=== PATIENT | female | born 1940 | race African-American/Black ===

== ENCOUNTER 2018-02-09 17:06 | Inpatient (IN) | payer MEDICARE, MEDICAID ==
[~2018-02-09] VITALS: Ht 157.5 cm; Wt 63.5 kg
[~2018-02-09 17:06] MED LIST: ATOR10TA; CLOP75TA16; PREG100C; VALS160T2
[2018-02-09 20:59] LABS: BASOPHILS % 0.5 % (0.0-2.0); HEMATOCRIT. 28.9 % (36.0-48.0); HEMOGLOBIN. 9.1 g/dL (12.0-16.0); LYMPHOCYTES % 7.7 % (20.0-50.0); MEAN CORPUSCULAR HEMOGLOBIN 26.7 pg (28.0-32.0); MEAN CORPUSCULAR VOLUME 84.4 fL (81.0-99.0); MEAN PLATELET VOLUME 8.6 fl (7.4-10.4); MONOCYTES % 4.5 % (2.0-8.0); NEUTROPHILS % 87.3 % (40.0-76.0); PLATELET 674 x1000/uL (130-400); RED BLOOD CELL COUNT 3.42 mill/uL (4.2-5.4); RED CELL DISTRIBUTION WIDTH 16.3 % (11.6-14.6)
[2018-02-09] MEDS ORDERED: SODIUM CHLORIDE 0.9% 1000ML BAG (SEPSIS BOLUS) IV ONE (21:00)
[2018-02-09 21:02] LABS: CHLORIDE 108 mEq/L (98-107)
[2018-02-09 21:03] LABS: INR 1.1
[2018-02-09] MEDS ORDERED: PIPERACILLIN/TAZ 3.375G PREMIX 50 ML IV ONE (21:15)
[2018-02-09] MEDS ORDERED: VANCOMYCIN 1 G PREMIX 200 ML IV ONE (21:15)
[2018-02-10] VITALS (12 sets, daily range): BP systolic 87–113; BP diastolic 28–62
[2018-02-10 00:15] LABS: CLARITY URINE CLOUDY (CLEAR); COLOR URINE YELLOW (YELLOW); KETONES URINE NEGATIVE (NEGATIVE); LEUKOCYTE ESTERASE URINE 3+ (NEGATIVE); NITRITE URINE NEGATIVE (NEGATIVE); OCCULT BLOOD URINE 2+ (NEGATIVE); PROTEIN URINE 2+ (NEGATIVE); SPECIFIC GRAVITY URINE 1.023 (1.005-1.030); UROBILINOGEN URINE 0.2 E.U./dL (0.2-1.0)
[2018-02-10] MEDS ORDERED: ACETAMINOPHEN 650MG/20.3ML UDC PO PRN (03:00)
[2018-02-10] MEDS ORDERED: HYDROCODONE/ACETAMINOPHEN 5/325MG TABLET PO PRN (03:00)
[2018-02-10] MEDS ORDERED: BACL-141 GT (03:48)
[2018-02-10] MEDS ORDERED: PROSTAT SUGAR FREE GT (03:48)
[2018-02-10] MEDS ORDERED: DONE5TAB7 GT (03:48)
[2018-02-10] MEDS ORDERED: LACT1CAP68 GT (03:48)
[2018-02-10] MEDS ORDERED: OXYB5SYR2 GT (03:48)
[2018-02-10] MEDS ORDERED: MAG355OR21 GT (03:48)
[2018-02-10] MEDS ORDERED: ACET-2853 PO (03:48)
[2018-02-10] MEDS ORDERED: HYDR-4001 PO (03:48)
[2018-02-10] MEDS ORDERED: MULT-230 PO (03:48)
[2018-02-10] MEDS ORDERED: DOCU250C14 GT (03:48)
[2018-02-10] MEDS ORDERED: CRAN3875 PO (03:49)
[2018-02-10] MEDS: CEFTRIAXONE 1 G PREMIX 50 ML IV SCH (04:10)
[2018-02-10] MEDS: SODIUM CHLORIDE 0.45% 1,000 ML IV SCH ×2 (04:11→17:49)
[2018-02-10] MEDS ORDERED: OXYBUTYNIN CHLORIDE GT SCH (06:00)
[2018-02-10] MEDS: OXYBUTYNIN CHLORIDE 5MG TABLET GT SCH ×3 (07:27→22:08)
[2018-02-10] MEDS: MULTIVITAMINS,THER W-MINERALS TABLET PO SCH (08:03)
[2018-02-10] MEDS ORDERED: [UNRECOGNIZED DRUG - OTHER] PO SCH (09:00)
[2018-02-10] MEDS ORDERED: MULTIVITAMIN WITH MINERALS PO SCH (09:00)
[2018-02-10 09:47] LABS: HEMATOCRIT. 24.3 % (36.0-48.0); HEMOGLOBIN. 7.6 g/dL (12.0-16.0); MEAN CORPUSCULAR HEMOGLOBIN 26.4 pg (28.0-32.0); MEAN CORPUSCULAR VOLUME 84.1 fL (81.0-99.0); MEAN PLATELET VOLUME 8.5 fl (7.4-10.4); PLATELET 597 x1000/uL (130-400); RED BLOOD CELL COUNT 2.89 mill/uL (4.2-5.4); RED CELL DISTRIBUTION WIDTH 16.2 % (11.6-14.6)
[2018-02-10 10:29] LABS: PLATELET ESTIMATE INCREASED
[2018-02-10] MEDS: VANCOMYCIN 750 MG PREMIX 150 ML IV SCH (10:45)
[2018-02-10] MEDS ORDERED: VANCOMYCIN 500 MG PREMIX 100 ML IV SCH (14:00)
[2018-02-10] MEDS ORDERED: DOCUSATE SODIUM 100MG CAPSULE PO SCH (15:00)
[2018-02-10] MEDS: DOCUSATE SODIUM SUGAR FREE 100MG/10ML UDC NG SCH (16:55)
[2018-02-10 18:35] LABS: BASOPHILS % 0.4 % (0.0-2.0); EOSINOPHILS % 0.1 % (0.0-5.0); HEMATOCRIT. 25.9 % (36.0-48.0); HEMOGLOBIN. 8.1 g/dL (12.0-16.0); MEAN CORPUSCULAR HEMOGLOBIN 26.3 pg (28.0-32.0); MEAN CORPUSCULAR VOLUME 84.5 fL (81.0-99.0); MEAN PLATELET VOLUME 8.7 fl (7.4-10.4); MONOCYTES % 3.5 % (2.0-8.0); PLATELET 530 x1000/uL (130-400); RED BLOOD CELL COUNT 3.06 mill/uL (4.2-5.4); RED CELL DISTRIBUTION WIDTH 16.5 % (11.6-14.6)
[2018-02-11] VITALS (16 sets, daily range): BP systolic 91–116; BP diastolic 47–83
[2018-02-11] MEDS: CEFTRIAXONE 1 G PREMIX 50 ML IV SCH (04:22)
[2018-02-11 05:56] LABS: HEMATOCRIT. 22.6 % (36.0-48.0); MEAN CORPUSCULAR HEMOGLOBIN 26.3 pg (28.0-32.0); MEAN CORPUSCULAR VOLUME 85.5 fL (81.0-99.0); MEAN PLATELET VOLUME 9.2 fl (7.4-10.4); RED BLOOD CELL COUNT 2.64 mill/uL (4.2-5.4); RED CELL DISTRIBUTION WIDTH 16.5 % (11.6-14.6)
[2018-02-11] MEDS: OXYBUTYNIN CHLORIDE 5MG TABLET GT SCH ×3 (06:53→22:03)
[2018-02-11 07:14] LABS: CHLORIDE 112 mEq/L (98-107)
[2018-02-11 07:30] LABS: PHOSPHORUS 2.4 mg/dL (2.5-4.9); TOTAL IRON BINDING CAPACITY 222 ug/dL (250-450)
[2018-02-11] MEDS: MULTIVITAMINS,THER W-MINERALS TABLET PO SCH (08:20)
[2018-02-11] MEDS: PANTOPRAZOLE SODIUM 40 MG/VIAL IV SCH (08:21)
[2018-02-11] MEDS: DOCUSATE SODIUM SUGAR FREE 100MG/10ML UDC NG SCH (08:21)
[2018-02-11] MEDS: VANCOMYCIN 750 MG PREMIX 150 ML IV SCH (08:21)
[2018-02-11 09:24] LABS: PLATELET ESTIMATE INCREASED
[2018-02-11 09:26] LABS: PLATELET 510 x1000/uL (130-400)
[2018-02-11] MEDS: POTASSIUM-SODIUM PHOSPHATE POWDER PACKET PO SCH ×2 (10:54→16:17)
[2018-02-11 10:59] LABS: FERRITIN 575 ng/mL (10-291)
[2018-02-11 11:10] LABS: HEPATITIS B SURFACE ANTIGEN NEGATIVE
[2018-02-11 11:38] LABS: HEPATITIS B CORE AB IGM NEGATIVE
[2018-02-11 11:40] LABS: HEPATITIS A AB IGM NEGATIVE (NEGATIVE)
[2018-02-11] MEDS: DEXTROSE 5% WATER 1,000 ML IV SCH (16:20)
[2018-02-11] MEDS: NYSTATIN POWDER 15GM TOP SCH (16:59)
[2018-02-11] MEDS ORDERED: ASCORBIC ACID 500MG/5ML 120ML PO SCH (17:00)
[2018-02-11] MEDS: ASCORBIC ACID 250 MG TABLET PO SCH (17:09)
[2018-02-11 19:15] LABS: CHLORIDE 113 mEq/L (98-107)
[2018-02-11] MEDS: METRONIDAZOLE 500MG TABLET PO SCH (22:03)
[2018-02-12] VITALS (12 sets, daily range): BP systolic 100–138; BP diastolic 46–99
[2018-02-12] MEDS: OXYBUTYNIN CHLORIDE 5MG TABLET GT SCH ×3 (05:49→21:28)
[2018-02-12] MEDS: CEFTRIAXONE 1 G PREMIX 50 ML IV SCH (05:50)
[2018-02-12] MEDS: DEXTROSE 5% WATER 1,000 ML IV SCH ×2 (05:52→10:40)
[2018-02-12 07:28] LABS: HEMATOCRIT. 29.8 % (36.0-48.0); HEMOGLOBIN. 9.6 g/dL (12.0-16.0); MEAN CORPUSCULAR VOLUME 87.3 fL (81.0-99.0); PLATELET 526 x1000/uL (130-400); RED BLOOD CELL COUNT 3.42 mill/uL (4.2-5.4); RED CELL DISTRIBUTION WIDTH 15.9 % (11.6-14.6)
[2018-02-12 08:01] LABS: CHLORIDE 110 mEq/L (98-107)
[2018-02-12 08:10] LABS: PHOSPHORUS 2.6 mg/dL (2.5-4.9)
[2018-02-12] MEDS: POTASSIUM-SODIUM PHOSPHATE POWDER PACKET PO SCH ×2 (08:58→14:14)
[2018-02-12] MEDS: VANCOMYCIN 750 MG PREMIX 150 ML IV SCH (08:58)
[2018-02-12] MEDS: DOCUSATE SODIUM SUGAR FREE 100MG/10ML UDC NG SCH (08:58)
[2018-02-12] MEDS: PANTOPRAZOLE SODIUM 40 MG/VIAL IV SCH (08:58)
[2018-02-12] MEDS: ASCORBIC ACID 250 MG TABLET PO SCH ×2 (08:58→17:25)
[2018-02-12] MEDS: MULTIVITAMINS,THER W-MINERALS TABLET PO SCH (08:58)
[2018-02-12] MEDS: METRONIDAZOLE 500MG TABLET PO SCH (08:58)
[2018-02-12] MEDS: ZINC SULFATE 220 MG ( 50 ) CAPSULE PO SCH (08:58)
[2018-02-12 09:41] LABS: PLATELET ESTIMATE INCREASED
[2018-02-12] MEDS: NYSTATIN POWDER 15GM TOP SCH ×2 (11:32→17:21)
[2018-02-12] MEDS: MEROPENEM 500 MG in SODIUM CHLORIDE 0.9% 50 ML IV SCH ×2 (15:32→23:00)
[2018-02-13 00:04] VITALS: BP 109/71
[2018-02-13 01:32] VITALS: BP 97/59
[2018-02-13 02:02] VITALS: BP 95/28
[2018-02-13 04:00] VITALS: BP 129/79
[2018-02-13] MEDS: OXYBUTYNIN CHLORIDE 5MG TABLET GT SCH ×3 (05:54→22:41)
[2018-02-13] MEDS: DEXTROSE 5% WATER 1,000 ML IV SCH (05:59)
[2018-02-13] MEDS: MEROPENEM 500 MG in SODIUM CHLORIDE 0.9% 50 ML IV SCH ×3 (06:15→22:41)
[2018-02-13] MEDS: DOCUSATE SODIUM SUGAR FREE 100MG/10ML UDC NG SCH (08:45)
[2018-02-13] MEDS: MULTIVITAMINS,THER W-MINERALS TABLET PO SCH (08:46)
[2018-02-13] MEDS: ASCORBIC ACID 250 MG TABLET PO SCH ×2 (08:46→18:36)
[2018-02-13] MEDS: POTASSIUM-SODIUM PHOSPHATE POWDER PACKET PO SCH (08:46)
[2018-02-13] MEDS: ZINC SULFATE 220 MG ( 50 ) CAPSULE PO SCH (08:46)
[2018-02-13] MEDS: FAMOTIDINE 20MG TABLET PO SCH (08:46)
[2018-02-13] MEDS: NYSTATIN POWDER 15GM TOP SCH ×2 (08:56→18:36)
[2018-02-13] MEDS ORDERED: LORAZEPAM 2MG/ML CPJ IV PRN (10:45)
[2018-02-13 11:12] LABS: BASOPHILS % 0.1 % (0.0-2.0); EOSINOPHILS % 0.1 % (0.0-5.0); HEMATOCRIT. 25.9 % (36.0-48.0); HEMOGLOBIN. 8.5 g/dL (12.0-16.0); LYMPHOCYTES % 7.5 % (20.0-50.0); MEAN CORPUSCULAR HEMOGLOBIN 28.2 pg (28.0-32.0); MEAN CORPUSCULAR VOLUME 86.2 fL (81.0-99.0); MEAN PLATELET VOLUME 8.3 fl (7.4-10.4); MONOCYTES % 3.7 % (2.0-8.0); NEUTROPHILS % 88.6 % (40.0-76.0); PLATELET 543 x1000/uL (130-400); RED CELL DISTRIBUTION WIDTH 16.5 % (11.6-14.6)
[2018-02-13 11:54] LABS: HAPTOGLOBIN 340 mg/dL (30-200)
[2018-02-13 13:16] LABS: CHLORIDE 105 mEq/L (98-107)
[2018-02-13 13:17] LABS: PHOSPHORUS 2.7 mg/dL (2.5-4.9)
[2018-02-13 16:00] VITALS: BP 163/50
[2018-02-13] MEDS: FERROUS SULFATE 300MG/5ML UDC GT SCH (18:36)
[2018-02-13 20:57] VITALS: BP 98/54
[2018-02-14] VITALS: BP 99/55
[2018-02-14 04:00] VITALS: BP 122/70
[2018-02-14] MEDS: MEROPENEM 500 MG in SODIUM CHLORIDE 0.9% 50 ML IV SCH ×3 (05:24→22:21)
[2018-02-14] MEDS: OXYBUTYNIN CHLORIDE 5MG TABLET GT SCH ×3 (05:24→22:22)
[2018-02-14 07:00] LABS: CHLORIDE 107 mEq/L (98-107)
[2018-02-14 07:01] LABS: PHOSPHORUS 2.5 mg/dL (2.5-4.9)
[2018-02-14 07:09] LABS: BASOPHILS % 0.6 % (0.0-2.0); EOSINOPHILS % 0.4 % (0.0-5.0); HEMATOCRIT. 30.5 % (36.0-48.0); HEMOGLOBIN. 9.8 g/dL (12.0-16.0); LYMPHOCYTES % 21.6 % (20.0-50.0); MEAN CORPUSCULAR HEMOGLOBIN 27.9 pg (28.0-32.0); MEAN CORPUSCULAR VOLUME 86.6 fL (81.0-99.0); MEAN PLATELET VOLUME 8.7 fl (7.4-10.4); MONOCYTES % 7.3 % (2.0-8.0); NEUTROPHILS % 70.1 % (40.0-76.0); PLATELET 439 x1000/uL (130-400); RED BLOOD CELL COUNT 3.52 mill/uL (4.2-5.4); RED CELL DISTRIBUTION WIDTH 16.3 % (11.6-14.6)
[2018-02-14] MEDS: NYSTATIN POWDER 15GM TOP SCH ×2 (09:00→17:58)
[2018-02-14 09:07] LABS: IMMUNOGLOBULIN A 397 mg/dL (64-422); IMMUNOGLOBULIN G 1402 mg/dL (700-1600); IMMUNOGLOBULIN M 92 mg/dL (26-217)
[2018-02-14] MEDS: ZINC SULFATE 220 MG ( 50 ) CAPSULE PO SCH (09:16)
[2018-02-14] MEDS: FERROUS SULFATE 300MG/5ML UDC GT SCH ×3 (09:16→17:59)
[2018-02-14] MEDS: DOCUSATE SODIUM SUGAR FREE 100MG/10ML UDC NG SCH (09:16)
[2018-02-14] MEDS: FAMOTIDINE 20MG TABLET PO SCH (09:16)
[2018-02-14] MEDS: MULTIVITAMINS,THER W-MINERALS TABLET PO SCH (09:16)
[2018-02-14] MEDS: ASCORBIC ACID 250 MG TABLET PO SCH ×2 (09:16→17:00)
[2018-02-14] MEDS: POTASSIUM-SODIUM PHOSPHATE POWDER PACKET PO SCH (09:16)
[2018-02-14] MEDS ORDERED: DEXTROSE 5% WATER 1,000 ML IV SCH (13:00)
[2018-02-14 20:00] VITALS: BP 128/52
[2018-02-15] VITALS (7 sets, daily range): BP systolic 117–130; BP diastolic 54–68
[2018-02-15] MEDS: MEROPENEM 500 MG in SODIUM CHLORIDE 0.9% 50 ML IV SCH ×3 (05:29→22:55)
[2018-02-15] MEDS: OXYBUTYNIN CHLORIDE 5MG TABLET GT SCH ×3 (05:30→22:55)
[2018-02-15 07:05] LABS: BASOPHILS % 0.5 % (0.0-2.0); EOSINOPHILS % 0.4 % (0.0-5.0); HEMATOCRIT. 27.9 % (36.0-48.0); LYMPHOCYTES % 11.9 % (20.0-50.0); MEAN CORPUSCULAR HEMOGLOBIN 27.8 pg (28.0-32.0); MEAN PLATELET VOLUME 8.3 fl (7.4-10.4); MONOCYTES % 4.4 % (2.0-8.0); NEUTROPHILS % 82.8 % (40.0-76.0); PLATELET 509 x1000/uL (130-400); RED BLOOD CELL COUNT 3.24 mill/uL (4.2-5.4); RED CELL DISTRIBUTION WIDTH 16.7 % (11.6-14.6)
[2018-02-15 07:56] LABS: CHLORIDE 102 mEq/L (98-107)
[2018-02-15 08:08] LABS: PHOSPHORUS 2.3 mg/dL (2.5-4.9)
[2018-02-15] MEDS: DOCUSATE SODIUM SUGAR FREE 100MG/10ML UDC NG SCH (08:08)
[2018-02-15] MEDS: FERROUS SULFATE 300MG/5ML UDC GT SCH ×3 (08:08→18:57)
[2018-02-15] MEDS: NYSTATIN POWDER 15GM TOP SCH ×2 (08:08→18:58)
[2018-02-15] MEDS: ZINC SULFATE 220 MG ( 50 ) CAPSULE PO SCH (08:08)
[2018-02-15] MEDS: POTASSIUM-SODIUM PHOSPHATE POWDER PACKET PO SCH (08:08)
[2018-02-15] MEDS: MULTIVITAMINS,THER W-MINERALS TABLET PO SCH (08:08)
[2018-02-15] MEDS: ASCORBIC ACID 250 MG TABLET PO SCH ×2 (08:08→18:57)
[2018-02-15] MEDS: FAMOTIDINE 20MG TABLET PO SCH (08:08)
[2018-02-15] MEDS ORDERED: POTASSIUM-SODIUM PHOSPHATE POWDER PACKET PO SCH (17:00)
[2018-02-16] VITALS: BP 119/60
[2018-02-16 04:00] VITALS: BP 116/49
[2018-02-16] MEDS: OXYBUTYNIN CHLORIDE 5MG TABLET GT SCH ×3 (05:51→22:17)
[2018-02-16] MEDS: MEROPENEM 500 MG in SODIUM CHLORIDE 0.9% 50 ML IV SCH ×3 (05:51→22:00)
[2018-02-16 07:43] LABS: HEMATOCRIT. 26.8 % (36.0-48.0); HEMOGLOBIN. 8.6 g/dL (12.0-16.0); MEAN CORPUSCULAR HEMOGLOBIN 27.8 pg (28.0-32.0); MEAN PLATELET VOLUME 7.9 fl (7.4-10.4); PLATELET 465 x1000/uL (130-400); RED BLOOD CELL COUNT 3.11 mill/uL (4.2-5.4); RED CELL DISTRIBUTION WIDTH 16.8 % (11.6-14.6)
[2018-02-16 07:57] LABS: CHLORIDE 103 mEq/L (98-107)
[2018-02-16 07:59] LABS: PHOSPHORUS 3.2 mg/dL (2.5-4.9)
[2018-02-16 08:00] VITALS: BP 105/49
[2018-02-16] MEDS: ASCORBIC ACID 250 MG TABLET PO SCH ×2 (09:04→17:08)
[2018-02-16] MEDS: MULTIVITAMINS,THER W-MINERALS TABLET PO SCH (09:04)
[2018-02-16] MEDS: ZINC SULFATE 220 MG ( 50 ) CAPSULE PO SCH (09:04)
[2018-02-16] MEDS: FAMOTIDINE 20MG TABLET PO SCH (09:04)
[2018-02-16] MEDS: DOCUSATE SODIUM SUGAR FREE 100MG/10ML UDC NG SCH (09:06)
[2018-02-16] MEDS: FERROUS SULFATE 300MG/5ML UDC GT SCH ×3 (09:07→17:08)
[2018-02-16] MEDS: POTASSIUM-SODIUM PHOSPHATE POWDER PACKET PO SCH (09:08)
[2018-02-16] MEDS: NYSTATIN POWDER 15GM TOP SCH ×2 (09:08→17:08)
[2018-02-16 11:39] LABS: PLATELET ESTIMATE INCREASED
[2018-02-16 12:00] VITALS: BP 100/48
[2018-02-16 16:00] VITALS: BP 115/57
[2018-02-16] MEDS ORDERED: LORAZEPAM 1MG TABLET GT PRN (16:30)
[2018-02-16 20:00] VITALS: BP 118/65
[2018-02-17] VITALS (7 sets, daily range): BP systolic 94–117; BP diastolic 45–75
[2018-02-17] MEDS: MEROPENEM 500 MG in SODIUM CHLORIDE 0.9% 50 ML IV SCH ×2 (05:12→13:08)
[2018-02-17] MEDS: OXYBUTYNIN CHLORIDE 5MG TABLET GT SCH ×2 (05:12→13:08)
[2018-02-17] MEDS: ZINC SULFATE 220 MG ( 50 ) CAPSULE PO SCH (09:28)
[2018-02-17] MEDS: FERROUS SULFATE 300MG/5ML UDC GT SCH ×3 (09:28→17:37)
[2018-02-17] MEDS: ASCORBIC ACID 250 MG TABLET PO SCH ×2 (09:28→17:37)
[2018-02-17] MEDS: DOCUSATE SODIUM SUGAR FREE 100MG/10ML UDC NG SCH (09:28)
[2018-02-17] MEDS: MULTIVITAMINS,THER W-MINERALS TABLET PO SCH (09:28)
[2018-02-17] MEDS: FAMOTIDINE 20MG TABLET PO SCH (09:28)
[2018-02-17] MEDS: POTASSIUM-SODIUM PHOSPHATE POWDER PACKET PO SCH (09:29)
[2018-02-17 10:42] LABS: CHLORIDE 105 mEq/L (98-107)
[2018-02-17 10:49] LABS: PHOSPHORUS 3.4 mg/dL (2.5-4.9)
[2018-02-17] MEDS: NYSTATIN POWDER 15GM TOP SCH ×2 (13:10→17:39)
[2018-02-17 16:35] LABS: BASOPHILS % 0.3 % (0.0-2.0); EOSINOPHILS % 0.4 % (0.0-5.0); HEMATOCRIT. 28.6 % (36.0-48.0); HEMOGLOBIN. 9.3 g/dL (12.0-16.0); MEAN CORPUSCULAR HEMOGLOBIN 28.2 pg (28.0-32.0); MEAN CORPUSCULAR VOLUME 86.2 fL (81.0-99.0); MEAN PLATELET VOLUME 8.1 fl (7.4-10.4); MONOCYTES % 9.9 % (2.0-8.0); NEUTROPHILS % 74.4 % (40.0-76.0); PLATELET 458 x1000/uL (130-400); RED BLOOD CELL COUNT 3.32 mill/uL (4.2-5.4); RED CELL DISTRIBUTION WIDTH 16.7 % (11.6-14.6)
== END 2018-02-17 20:45 | DRG 871 ==
LOC: ER 17:06 → 3WST 21:42 → EDBEDREQSVC 21:48 → EDBEDREQ 21:48 → EDBEDREQTM 21:48 → ENRESERV 22:50 → 6EST 02-13 02:57
PROVIDERS: ADMIT Internal Medicine; ATTEND Internal Medicine
PROC: 30233N1 Transfusion of Nonautologous Red Blood Cells into Peripheral Vein, Percutaneous Approach (ICD-10-PCS; 2018-02-11)
PROC: 02HV33Z Insertion of Infusion Device into Superior Vena Cava, Percutaneous Approach (ICD-10-PCS; principal; 2018-02-17)
PROC: B548ZZA Ultrasonography of Superior Vena Cava, Guidance (ICD-10-PCS; 2018-02-17)
DX: A41.9 Sepsis, unspecified organism (principal); L89.154 Pressure ulcer of sacral region, stage 4; E43 Unspecified severe protein-calorie malnutrition; N17.9 Acute kidney failure, unspecified; N39.0 Urinary tract infection, site not specified; E87.0 Hyperosmolality and hypernatremia; F03.91 Unspecified dementia, unspecified severity, with behavioral disturbance; K94.23 Gastrostomy malfunction; K94.21 Gastrostomy hemorrhage; E11.621 Type 2 diabetes mellitus with foot ulcer; B96.20 Unspecified Escherichia coli [E. coli] as the cause of diseases classified elsewhere; Y83.8 Other surgical procedures as the cause of abnormal reaction of the patient, or of later complication, without mention of misadventure at the time of the procedure; D63.8 Anemia in other chronic diseases classified elsewhere; E11.22 Type 2 diabetes mellitus with diabetic chronic kidney disease; E11.51 Type 2 diabetes mellitus with diabetic peripheral angiopathy without gangrene; D50.9 Iron deficiency anemia, unspecified; E11.65 Type 2 diabetes mellitus with hyperglycemia; E78.5 Hyperlipidemia, unspecified; E83.39 Other disorders of phosphorus metabolism; E86.0 Dehydration; L98.419 Non-pressure chronic ulcer of buttock with unspecified severity; I12.9 Hypertensive chronic kidney disease with stage 1 through stage 4 chronic kidney disease, or unspecified chronic kidney disease; I25.10 Atherosclerotic heart disease of native coronary artery without angina pectoris; I48.91 Unspecified atrial fibrillation; J44.9 Chronic obstructive pulmonary disease, unspecified; K21.9 Gastro-esophageal reflux disease without esophagitis; K76.0 Fatty (change of) liver, not elsewhere classified; K80.20 Calculus of gallbladder without cholecystitis without obstruction; L30.4 Erythema intertrigo; N18.9 Chronic kidney disease, unspecified; N32.81 Overactive bladder; Z87.891 Personal history of nicotine dependence; Z79.84 Long term (current) use of oral hypoglycemic drugs; Z79.899 Other long term (current) drug therapy; Z86.73 Personal history of transient ischemic attack (TIA), and cerebral infarction without residual deficits; Z68.25 Body mass index [BMI] 25.0-25.9, adult; Y92.89 Other specified places as the place of occurrence of the external cause
CPT/HCPCS: 36415; 36569; 71045; 76700; 76937; 80048; 80202; 82270; 82728; 82784; 83010; 83540; 83550; 83605; 83615; 83735; 84100; 84145; 84484; 85651; 86334; 86705; 86709; 86803; 86850; 86900; 86920; 87077; 87186; 87340; 93005; 96365; 96366; 96367; 99291; A6261; C1725; C1893; C9113; J0696; J2060; J2185; J2543; J3370; J7030; J7040; J7050; J7070; P9016; A4315

== ENCOUNTER 2020-09-15 15:56 | Inpatient (IN) | payer MEDICARE, MEDICAID ==
[~2020-09-15] VITALS: Ht 154.9 cm; Wt 76.8 kg
[~2020-09-15 15:56] MED LIST changes: +ACET650T37 PO; -ATOR10TA; +BACL-141 GT; -CLOP75TA16; +CRAN3875 PO; +DOCU250C14 GT; +DONE5TAB7 GT; +HYDR-4001 PO; +LACT1CAP68 GT; +MAG355OR21 GT; +MULT-230 PO; +OXYB5SYR2 GT; -PREG100C; +PROSTAT SUGAR FREE GT; -VALS160T2
[2020-09-15] MEDS ORDERED: SODIUM CHLORIDE 0.9% 1,000 ML IV ONE (16:30)
[2020-09-15 16:53] LABS: HEMATOCRIT. 24.3 % (36.0-48.0); HEMOGLOBIN. 7.7 g/dL (12.0-16.0); MEAN CORPUSCULAR VOLUME 78.7 fL (81.0-99.0); MEAN PLATELET VOLUME 6.8 fl (7.4-10.4); PLATELET 476 x1000/uL (130-400); RED BLOOD CELL COUNT 3.09 mill/uL (4.2-5.4); RED CELL DISTRIBUTION WIDTH 19.6 % (11.6-14.6)
[2020-09-15 17:03] LABS: CHLORIDE 101 mEq/L (98-107)
[2020-09-15 17:04] LABS: INR 1.1; PARTIAL THROMBOPLASTIN TIME 32.1 sec (23.4-31.0); PROTHROMBIN TIME 12.1 sec (9.6-11.0)
[2020-09-15 17:25] LABS: PLATELET ESTIMATE INCREASED
[2020-09-15] MEDS ORDERED: SODIUM CHLORIDE 0.9% 1000ML BAG (SEPSIS BOLUS) IV ONE (18:45)
[2020-09-15 21:59] LABS: CLARITY URINE CLEAR (CLEAR); COLOR URINE YELLOW (YELLOW); KETONES URINE NEGATIVE (NEGATIVE); LEUKOCYTE ESTERASE URINE 2+ (NEGATIVE); NITRITE URINE NEGATIVE (NEGATIVE); OCCULT BLOOD URINE 1+ (NEGATIVE); PH URINE 8.5 (4.5-8.0); PROTEIN URINE TRACE (NEGATIVE); UROBILINOGEN URINE 0.2 E.U./dL (0.2-1.0)
[2020-09-15 22:50] VITALS: BP 149/84
[2020-09-16] VITALS (11 sets, daily range): BP systolic 109–129; BP diastolic 44–60
[2020-09-16] MEDS ORDERED: IPRATROPIUM/ALBUTEROL 0.5-3(2.5)MG/3ML NEB HHN PRN (00:30)
[2020-09-16] MEDS ORDERED: DEXTROSE 50% WATER 50ML SYRINGE IV PRN (00:30)
[2020-09-16] MEDS ORDERED: HYDROCODONE/ACETAMINOPHEN 5/325MG TABLET GT PRN (00:30)
[2020-09-16] MEDS ORDERED: NON FORMULARY PATIENT HOME MED XX SCH ×2 (01:15)
[2020-09-16] MEDS ORDERED: CLONIDINE 0.1MG TABLET GT SCH (01:15)
[2020-09-16] MEDS ORDERED: CLON0.1T GT (01:16)
[2020-09-16] MEDS ORDERED: METO25TA6 GT (01:16)
[2020-09-16] MEDS ORDERED: ZINC220C6 GT (01:16)
[2020-09-16] MEDS ORDERED: ASCO500C18 GT (01:16)
[2020-09-16] MEDS ORDERED: FAMO20TA8 GT (01:16)
[2020-09-16] MEDS ORDERED: VANCOMYCIN 1 G PREMIX 200 ML IV SCH (02:00)
[2020-09-16] MEDS ORDERED: METOPROLOL TARTRATE 25MG TABLET GT SCH (02:00)
[2020-09-16] MEDS: PIPERACILLIN/TAZOBACTAM 3.375 G in DEXT 5% WATER 100 ML IV SCH ×4 (02:42→18:23)
[2020-09-16] MEDS ORDERED: CLONIDINE 0.1MG TABLET GT PRN (03:00)
[2020-09-16] MEDS ORDERED: INSULIN LISPRO 100 UNITS/ML SUBCUT SCH ×2 (06:00→07:50)
[2020-09-16] MEDS: INSULIN LISPRO 100 UNITS/ML SUBCUT SCH ×3 (06:00→17:09)
[2020-09-16] MEDS: BLOOD SUGAR DIAGNOSTIC STRIP TEST SCH ×3 (06:21→17:09)
[2020-09-16 06:52] LABS: MEAN CORPUSCULAR HEMOGLOBIN 25.8 pg (28.0-32.0); MEAN CORPUSCULAR VOLUME 79.7 fL (81.0-99.0); PLATELET 405 x1000/uL (130-400); RED BLOOD CELL COUNT 2.45 mill/uL (4.2-5.4); RED CELL DISTRIBUTION WIDTH 19.4 % (11.6-14.6)
[2020-09-16 06:55] LABS: CHLORIDE 106 mEq/L (98-107)
[2020-09-16 07:05] LABS: HEMATOCRIT. 19.6 % (36.0-48.0); HEMOGLOBIN. 6.3 g/dL (12.0-16.0)
[2020-09-16] MEDS: MULTIVITAMINS,THER W-MINERALS TABLET GT SCH (09:00)
[2020-09-16] MEDS ORDERED: FAMOTIDINE 20MG TABLET GT SCH (09:00)
[2020-09-16] MEDS: ASCORBIC ACID 500 MG TABLET GT SCH (09:00)
[2020-09-16] MEDS: METOPROLOL TARTRATE 25MG TABLET GT SCH ×2 (09:00→20:43)
[2020-09-16] MEDS: ZINC SULFATE 220 MG ( 50 ) CAPSULE GT SCH (09:00)
[2020-09-16 10:57] LABS: PLATELET ESTIMATE SLIGHTLY INCREASED
[2020-09-16] MEDS: VANCOMYCIN 750 MG PREMIX 150 ML IV SCH (15:22)
[2020-09-16] MEDS: FAMOTIDINE 20MG/2ML VIAL IV SCH (20:42)
[2020-09-16] MEDS: DEXT 5%/0.45% NACL KCL 10MEQ/L 1,000 ML IV SCH (20:47)
[2020-09-17] VITALS: BP 119/65
[2020-09-17] MEDS: BLOOD SUGAR DIAGNOSTIC STRIP TEST SCH ×4 (00:07→18:25)
[2020-09-17] MEDS: PIPERACILLIN/TAZOBACTAM 3.375 G in DEXT 5% WATER 100 ML IV SCH ×4 (00:10→19:34)
[2020-09-17 04:00] VITALS: BP 145/47
[2020-09-17] MEDS: INSULIN LISPRO 100 UNITS/ML SUBCUT SCH ×4 (06:00→18:00)
[2020-09-17 07:55] VITALS: BP 122/44
[2020-09-17 08:43] LABS: HEMATOCRIT. 27.8 % (36.0-48.0); HEMOGLOBIN. 8.9 g/dL (12.0-16.0); MEAN CORPUSCULAR HEMOGLOBIN 25.3 pg (28.0-32.0); MEAN PLATELET VOLUME 7.1 fl (7.4-10.4); PLATELET 441 x1000/uL (130-400); RED BLOOD CELL COUNT 3.53 mill/uL (4.2-5.4)
[2020-09-17] MEDS: VANCOMYCIN 750 MG PREMIX 150 ML IV SCH (08:46)
[2020-09-17 08:55] LABS: CHLORIDE 107 mEq/L (98-107)
[2020-09-17 09:01] LABS: TOTAL IRON BINDING CAPACITY 367 ug/dL (250-450)
[2020-09-17] MEDS: ZINC SULFATE 220 MG ( 50 ) CAPSULE GT SCH (09:32)
[2020-09-17] MEDS: MULTIVITAMINS,THER W-MINERALS TABLET GT SCH (09:32)
[2020-09-17] MEDS: ASCORBIC ACID 500 MG TABLET GT SCH (09:32)
[2020-09-17] MEDS: METOPROLOL TARTRATE 25MG TABLET GT SCH ×2 (09:33→21:35)
[2020-09-17] MEDS: FAMOTIDINE 20MG/2ML VIAL IV SCH ×2 (09:33→21:35)
[2020-09-17 12:06] VITALS: BP 107/42
[2020-09-17 15:55] VITALS: BP 121/55
[2020-09-17] MEDS: DEXT 5%/0.45% NACL KCL 10MEQ/L 1,000 ML IV SCH (18:25)
[2020-09-17 20:02] VITALS: BP 136/52
[2020-09-17 22:31] LABS: PLATELET ESTIMATE INCREASED
[2020-09-18] VITALS: BP 131/62
[2020-09-18] MEDS: PIPERACILLIN/TAZOBACTAM 3.375 G in DEXT 5% WATER 100 ML IV SCH ×4 (00:50→19:36)
[2020-09-18] MEDS: VANCOMYCIN 750 MG PREMIX 150 ML IV SCH ×2 (01:56→21:46)
[2020-09-18 04:00] VITALS: BP 122/48
[2020-09-18] MEDS: DEXT 5%/0.45% NACL KCL 10MEQ/L 1,000 ML IV SCH (04:47)
[2020-09-18] MEDS: INSULIN LISPRO 100 UNITS/ML SUBCUT SCH ×4 (06:00→17:52)
[2020-09-18] MEDS: BLOOD SUGAR DIAGNOSTIC STRIP TEST SCH ×4 (06:00→17:52)
[2020-09-18 07:03] LABS: CHLORIDE 109 mEq/L (98-107)
[2020-09-18 07:29] LABS: HEMATOCRIT. 24.5 % (36.0-48.0); HEMOGLOBIN. 7.9 g/dL (12.0-16.0); MEAN CORPUSCULAR HEMOGLOBIN 25.7 pg (28.0-32.0); MEAN CORPUSCULAR VOLUME 79.7 fL (81.0-99.0); PLATELET 403 x1000/uL (130-400); RED BLOOD CELL COUNT 3.07 mill/uL (4.2-5.4); RED CELL DISTRIBUTION WIDTH 19.7 % (11.6-14.6)
[2020-09-18 07:35] LABS: VITAMIN B12 SERUM 1868 pg/mL (211-911)
[2020-09-18 08:00] VITALS: BP 141/50
[2020-09-18] MEDS: ASCORBIC ACID 500 MG TABLET GT SCH ×2 (09:28→10:00)
[2020-09-18] MEDS: ZINC SULFATE 220 MG ( 50 ) CAPSULE GT SCH ×2 (09:28→10:00)
[2020-09-18] MEDS: MULTIVITAMINS,THER W-MINERALS TABLET GT SCH ×2 (09:28→10:00)
[2020-09-18] MEDS: FAMOTIDINE 20MG/2ML VIAL IV SCH ×2 (09:29→21:46)
[2020-09-18] MEDS: METOPROLOL TARTRATE 25MG TABLET GT SCH ×3 (09:32→20:56)
[2020-09-18 12:00] VITALS: BP 112/42
[2020-09-18 13:56] LABS: FERRITIN 130 ng/mL (10-291)
[2020-09-18 14:52] LABS: PLATELET ESTIMATE SLIGHTLY INCREASED
[2020-09-18 16:00] VITALS: BP 123/51
[2020-09-18] MEDS ORDERED: DIATR MEGLU/DIATRIZOATE SOLN 30ML PO NR (17:00)
[2020-09-18] MEDS: DEXT 5%/0.45% NACL KCL 20MEQ/L 1,000 ML IV SCH (19:36)
[2020-09-18 20:04] VITALS: BP 135/57
[2020-09-19] VITALS: BP 141/59
[2020-09-19] MEDS: BLOOD SUGAR DIAGNOSTIC STRIP TEST SCH ×5 (00:19→23:21)
[2020-09-19] MEDS: PIPERACILLIN/TAZOBACTAM 3.375 G in DEXT 5% WATER 100 ML IV SCH ×4 (01:44→18:32)
[2020-09-19 04:00] VITALS: BP 150/74
[2020-09-19] MEDS: INSULIN LISPRO 100 UNITS/ML SUBCUT SCH ×5 (06:00→23:21)
[2020-09-19] MEDS: DEXT 5%/0.45% NACL KCL 20MEQ/L 1,000 ML IV SCH ×2 (06:11→20:48)
[2020-09-19 07:05] LABS: CHLORIDE 111 mEq/L (98-107)
[2020-09-19 07:16] LABS: PHOSPHORUS 2.5 mg/dL (2.5-4.9)
[2020-09-19 08:00] VITALS: BP 153/55
[2020-09-19] MEDS: ZINC SULFATE 220 MG ( 50 ) CAPSULE GT SCH (08:45)
[2020-09-19] MEDS: MULTIVITAMINS,THER W-MINERALS TABLET GT SCH (08:45)
[2020-09-19] MEDS: METOPROLOL TARTRATE 25MG TABLET GT SCH ×2 (08:46→20:58)
[2020-09-19] MEDS: FAMOTIDINE 20MG/2ML VIAL IV SCH ×2 (08:46→20:49)
[2020-09-19] MEDS: ASCORBIC ACID 500 MG TABLET GT SCH (08:46)
[2020-09-19 08:53] LABS: MEAN CORPUSCULAR HEMOGLOBIN 26.1 pg (28.0-32.0); MEAN CORPUSCULAR VOLUME 79.2 fL (81.0-99.0); MEAN PLATELET VOLUME 7.3 fl (7.4-10.4); PLATELET 380 x1000/uL (130-400); RED BLOOD CELL COUNT 3.49 mill/uL (4.2-5.4); RED CELL DISTRIBUTION WIDTH 20.3 % (11.6-14.6)
[2020-09-19 08:57] LABS: HEMATOCRIT. 27.7 % (36.0-48.0); HEMOGLOBIN. 9.1 g/dL (12.0-16.0)
[2020-09-19 12:00] VITALS: BP 140/65
[2020-09-19] MEDS: VANCOMYCIN 750 MG PREMIX 150 ML IV SCH (14:08)
[2020-09-19 16:00] VITALS: BP 125/62
[2020-09-19 16:03] LABS: PLATELET ESTIMATE NORMAL
[2020-09-19] MEDS ORDERED: POTASSIUM CHLORIDE 20MEQ TABLET SR PO NR ×3 (17:00→23:00)
[2020-09-19 20:00] VITALS: BP 121/61
[2020-09-20 00:30] VITALS: BP 128/64
[2020-09-20] MEDS: PIPERACILLIN/TAZOBACTAM 3.375 G in DEXT 5% WATER 100 ML IV SCH ×4 (01:56→18:48)
[2020-09-20 04:00] VITALS: BP 109/70
[2020-09-20] MEDS: INSULIN LISPRO 100 UNITS/ML SUBCUT SCH ×3 (06:00→17:22)
[2020-09-20 06:28] LABS: CHLORIDE 111 mEq/L (98-107)
[2020-09-20 06:45] LABS: BASOPHILS % 0.2 % (0.0-2.0); EOSINOPHILS % 0.8 % (0.0-5.0); HEMATOCRIT. 26.6 % (36.0-48.0); HEMOGLOBIN. 8.7 g/dL (12.0-16.0); LYMPHOCYTES % 16.1 % (20.0-50.0); MEAN CORPUSCULAR HEMOGLOBIN 26.2 pg (28.0-32.0); MEAN PLATELET VOLUME 7.4 fl (7.4-10.4); MONOCYTES % 10.8 % (2.0-8.0); NEUTROPHILS % 72.1 % (40.0-76.0); PLATELET 360 x1000/uL (130-400); RED BLOOD CELL COUNT 3.32 mill/uL (4.2-5.4); RED CELL DISTRIBUTION WIDTH 20.7 % (11.6-14.6)
[2020-09-20] MEDS: BLOOD SUGAR DIAGNOSTIC STRIP TEST SCH ×3 (06:54→17:21)
[2020-09-20 08:08] VITALS: BP 130/52
[2020-09-20] MEDS: VANCOMYCIN 750 MG PREMIX 150 ML IV SCH (08:14)
[2020-09-20] MEDS: ZINC SULFATE 220 MG ( 50 ) CAPSULE GT SCH (08:30)
[2020-09-20] MEDS: ASCORBIC ACID 500 MG TABLET GT SCH (08:30)
[2020-09-20] MEDS: MULTIVITAMINS,THER W-MINERALS TABLET GT SCH (08:30)
[2020-09-20] MEDS: METOPROLOL TARTRATE 25MG TABLET GT SCH ×2 (08:31→21:57)
[2020-09-20] MEDS: FAMOTIDINE 20MG/2ML VIAL IV SCH ×2 (08:37→21:58)
[2020-09-20 11:54] VITALS: BP 146/56
[2020-09-20] MEDS: DEXT 5%/0.45% NACL KCL 20MEQ/L 1,000 ML IV SCH (13:02)
[2020-09-20 16:23] VITALS: BP 126/62
[2020-09-20 20:36] VITALS: BP 149/78
[2020-09-21] VITALS: BP 112/66
[2020-09-21] MEDS: BLOOD SUGAR DIAGNOSTIC STRIP TEST SCH ×4 (00:52→17:09)
[2020-09-21] MEDS: PIPERACILLIN/TAZOBACTAM 3.375 G in DEXT 5% WATER 100 ML IV SCH ×4 (00:52→19:19)
[2020-09-21] MEDS: VANCOMYCIN 750 MG PREMIX 150 ML IV SCH ×2 (01:23→22:17)
[2020-09-21 04:00] VITALS: BP 132/49
[2020-09-21] MEDS: INSULIN LISPRO 100 UNITS/ML SUBCUT SCH ×4 (06:00→17:10)
[2020-09-21 06:59] LABS: CHLORIDE 109 mEq/L (98-107)
[2020-09-21 07:10] LABS: HEMATOCRIT. 30.6 % (36.0-48.0); MEAN CORPUSCULAR HEMOGLOBIN 26.1 pg (28.0-32.0); MEAN CORPUSCULAR VOLUME 80.1 fL (81.0-99.0); MEAN PLATELET VOLUME 7.8 fl (7.4-10.4); PLATELET 326 x1000/uL (130-400); RED BLOOD CELL COUNT 3.82 mill/uL (4.2-5.4); RED CELL DISTRIBUTION WIDTH 20.7 % (11.6-14.6)
[2020-09-21 08:00] VITALS: BP 121/68
[2020-09-21] MEDS: MULTIVITAMINS,THER W-MINERALS TABLET GT SCH (09:00)
[2020-09-21] MEDS: METOPROLOL TARTRATE 25MG TABLET GT SCH ×2 (09:00→21:28)
[2020-09-21] MEDS: ASCORBIC ACID 500 MG TABLET GT SCH (09:00)
[2020-09-21] MEDS: ZINC SULFATE 220 MG ( 50 ) CAPSULE GT SCH (09:00)
[2020-09-21] MEDS: FAMOTIDINE 20MG/2ML VIAL IV SCH ×2 (09:00→21:28)
[2020-09-21] MEDS: DEXT 5%/0.45% NACL 1000ML 1,000 ML IV SCH (09:53)
[2020-09-21 10:20] LABS: PLATELET ESTIMATE NORMAL
[2020-09-21 12:00] VITALS: BP 134/74
[2020-09-21] MEDS ORDERED: LIDOCAINE HCL 1% 20ML VIAL (Pyxis) INJ ONE (14:00)
[2020-09-21] MEDS: SODIUM POLYSTYRENE SULFONATE 15 G/60 ML BOT NG NR ×2 (15:24→16:22)
[2020-09-21 16:00] VITALS: BP 128/74
[2020-09-21 20:00] VITALS: BP 166/86
[2020-09-22] VITALS: BP 147/78
[2020-09-22 04:00] VITALS: BP 140/82
[2020-09-22] MEDS: DEXT 5%/0.45% NACL 1000ML 1,000 ML IV SCH (04:45)
[2020-09-22 07:00] LABS: CHLORIDE 109 mEq/L (98-107)
[2020-09-22 07:02] LABS: BASOPHILS % 0.4 % (0.0-2.0); EOSINOPHILS % 1.2 % (0.0-5.0); HEMATOCRIT. 30.7 % (36.0-48.0); HEMOGLOBIN. 9.9 g/dL (12.0-16.0); LYMPHOCYTES % 13.2 % (20.0-50.0); MEAN CORPUSCULAR HEMOGLOBIN 25.7 pg (28.0-32.0); MEAN CORPUSCULAR VOLUME 79.9 fL (81.0-99.0); MEAN PLATELET VOLUME 7.5 fl (7.4-10.4); MONOCYTES % 7.5 % (2.0-8.0); NEUTROPHILS % 77.7 % (40.0-76.0); PLATELET 350 x1000/uL (130-400); RED BLOOD CELL COUNT 3.85 mill/uL (4.2-5.4); RED CELL DISTRIBUTION WIDTH 20.3 % (11.6-14.6)
[2020-09-22 08:16] VITALS: BP 150/53
[2020-09-22] MEDS: MULTIVITAMINS,THER W-MINERALS TABLET GT SCH (09:39)
[2020-09-22] MEDS: ASCORBIC ACID 500 MG TABLET GT SCH (09:39)
[2020-09-22] MEDS: ZINC SULFATE 220 MG ( 50 ) CAPSULE GT SCH (09:39)
[2020-09-22] MEDS: METOPROLOL TARTRATE 25MG TABLET GT SCH ×2 (09:40→21:40)
[2020-09-22] MEDS: FAMOTIDINE 20MG/2ML VIAL IV SCH (09:40)
[2020-09-22] MEDS: BLOOD SUGAR DIAGNOSTIC STRIP TEST SCH ×3 (12:00→18:52)
[2020-09-22] MEDS: INSULIN LISPRO 100 UNITS/ML SUBCUT SCH ×3 (12:00→18:00)
[2020-09-22 12:13] VITALS: BP 150/83
[2020-09-22 16:16] VITALS: BP 149/76
[2020-09-22 20:00] VITALS: BP 152/66
[2020-09-23] VITALS: BP 161/69
[2020-09-23 04:00] VITALS: BP 174/104
[2020-09-23] MEDS: ACETAMINOPHEN 650MG/20.3ML UDC GT PRN ×2 (05:26→22:13)
[2020-09-23] MEDS: BLOOD SUGAR DIAGNOSTIC STRIP TEST SCH ×4 (05:44→17:12)
[2020-09-23] MEDS: INSULIN LISPRO 100 UNITS/ML SUBCUT SCH ×4 (05:44→17:12)
[2020-09-23 07:40] LABS: BASOPHILS % 0.4 % (0.0-2.0); EOSINOPHILS % 0.5 % (0.0-5.0); HEMATOCRIT. 26.8 % (36.0-48.0); HEMOGLOBIN. 8.8 g/dL (12.0-16.0); LYMPHOCYTES % 12.9 % (20.0-50.0); MEAN CORPUSCULAR HEMOGLOBIN 25.8 pg (28.0-32.0); MEAN CORPUSCULAR VOLUME 79.1 fL (81.0-99.0); MEAN PLATELET VOLUME 7.7 fl (7.4-10.4); MONOCYTES % 7.8 % (2.0-8.0); NEUTROPHILS % 78.4 % (40.0-76.0); PLATELET 384 x1000/uL (130-400); RED BLOOD CELL COUNT 3.39 mill/uL (4.2-5.4); RED CELL DISTRIBUTION WIDTH 20.3 % (11.6-14.6)
[2020-09-23 07:46] LABS: CHLORIDE 110 mEq/L (98-107)
[2020-09-23 08:00] VITALS: BP 128/61
[2020-09-23] MEDS: METOPROLOL TARTRATE 25MG TABLET GT SCH ×2 (09:13→22:12)
[2020-09-23] MEDS: FAMOTIDINE 20MG TABLET GT SCH (09:13)
[2020-09-23] MEDS: ASCORBIC ACID 500 MG TABLET GT SCH (09:13)
[2020-09-23] MEDS: ZINC SULFATE 220 MG ( 50 ) CAPSULE GT SCH (09:13)
[2020-09-23] MEDS: MULTIVITAMINS,THER W-MINERALS TABLET GT SCH (09:13)
[2020-09-23 12:00] VITALS: BP 136/60
[2020-09-23] MEDS: DEXT 5%/0.45% NACL 1000ML 1,000 ML IV SCH (13:19)
[2020-09-23 16:00] VITALS: BP 148/72
[2020-09-23 20:00] VITALS: BP 143/63
[2020-09-24] VITALS: BP 137/68
[2020-09-24] MEDS: BLOOD SUGAR DIAGNOSTIC STRIP TEST SCH ×5 (00:29→23:05)
[2020-09-24] MEDS: ACETAMINOPHEN 650MG/20.3ML UDC GT PRN (02:20)
[2020-09-24] MEDS: DEXT 5%/0.45% NACL 1000ML 1,000 ML IV SCH ×2 (02:21→20:46)
[2020-09-24 04:00] VITALS: BP 119/62
[2020-09-24] MEDS: INSULIN LISPRO 100 UNITS/ML SUBCUT SCH ×5 (06:00→23:06)
[2020-09-24 08:00] VITALS: BP 194/89
[2020-09-24] MEDS: FAMOTIDINE 20MG TABLET GT SCH (08:28)
[2020-09-24] MEDS: MULTIVITAMINS,THER W-MINERALS TABLET GT SCH (08:28)
[2020-09-24] MEDS: ZINC SULFATE 220 MG ( 50 ) CAPSULE GT SCH (08:28)
[2020-09-24] MEDS: ASCORBIC ACID 500 MG TABLET GT SCH (08:28)
[2020-09-24] MEDS: METOPROLOL TARTRATE 25MG TABLET GT SCH ×2 (08:30→20:46)
[2020-09-24 12:00] VITALS: BP 127/57
[2020-09-24 16:00] VITALS: BP 134/68
[2020-09-24] MEDS: PIPERACILLIN/TAZOBACTAM 3.375 G in DEXT 5% WATER 100 ML IV SCH ×2 (17:26→23:00)
[2020-09-24 20:00] VITALS: BP 136/75
[2020-09-25] VITALS: BP 124/69
[2020-09-25 04:00] VITALS: BP 127/72
[2020-09-25] MEDS: PIPERACILLIN/TAZOBACTAM 3.375 G in DEXT 5% WATER 100 ML IV SCH ×2 (04:30→12:29)
[2020-09-25] MEDS: INSULIN LISPRO 100 UNITS/ML SUBCUT SCH ×2 (06:00→12:00)
[2020-09-25] MEDS: BLOOD SUGAR DIAGNOSTIC STRIP TEST SCH ×2 (06:00→12:22)
[2020-09-25 06:38] LABS: BASOPHILS % 0.2 % (0.0-2.0); EOSINOPHILS % 1.9 % (0.0-5.0); HEMATOCRIT. 27.9 % (36.0-48.0); HEMOGLOBIN. 8.7 g/dL (12.0-16.0); LYMPHOCYTES % 18.7 % (20.0-50.0); MEAN CORPUSCULAR HEMOGLOBIN 25.3 pg (28.0-32.0); MEAN CORPUSCULAR VOLUME 81.2 fL (81.0-99.0); MEAN PLATELET VOLUME 7.5 fl (7.4-10.4); MONOCYTES % 9.1 % (2.0-8.0); NEUTROPHILS % 70.1 % (40.0-76.0); PLATELET 411 x1000/uL (130-400); RED BLOOD CELL COUNT 3.44 mill/uL (4.2-5.4); RED CELL DISTRIBUTION WIDTH 21.6 % (11.6-14.6)
[2020-09-25 08:10] LABS: CHLORIDE 110 mEq/L (98-107)
[2020-09-25 08:15] VITALS: BP 128/60
[2020-09-25] MEDS: METOPROLOL TARTRATE 25MG TABLET GT SCH (09:29)
[2020-09-25] MEDS: MULTIVITAMINS,THER W-MINERALS TABLET GT SCH (09:29)
[2020-09-25] MEDS: FAMOTIDINE 20MG TABLET GT SCH (09:29)
[2020-09-25] MEDS: ASCORBIC ACID 500 MG TABLET GT SCH (09:29)
[2020-09-25] MEDS: ZINC SULFATE 220 MG ( 50 ) CAPSULE GT SCH (09:30)
[2020-09-25 10:05] VITALS: BP 128/60
[2020-09-25 12:10] VITALS: BP 130/64
[2020-09-25] MEDS: DEXT 5%/0.45% NACL 1000ML 1,000 ML IV SCH (13:45)
== END 2020-09-25 16:19 | DRG 871 ==
LOC: ER 16:33 → 6WST 18:50 → EDBEDREQ 18:52 → EDBEDREQTM 18:52 → ENRESERV 20:05
PROVIDERS: ADMIT Internal Medicine; ATTEND Internal Medicine
PROC: 02HV33Z Insertion of Infusion Device into Superior Vena Cava, Percutaneous Approach (ICD-10-PCS; principal; 2020-09-21)
PROC: B518ZZA Fluoroscopy of Superior Vena Cava, Guidance (ICD-10-PCS; 2020-09-21)
PROC: B548ZZA Ultrasonography of Superior Vena Cava, Guidance (ICD-10-PCS; 2020-09-21)
PROC: 0DH67UZ Insertion of Feeding Device into Stomach, Via Natural or Artificial Opening (ICD-10-PCS; 2020-09-21)
DX: A41.50 Gram-negative sepsis, unspecified (principal); E43 Unspecified severe protein-calorie malnutrition; I69.354 Hemiplegia and hemiparesis following cerebral infarction affecting left non-dominant side; N39.0 Urinary tract infection, site not specified; Z43.1 Encounter for attention to gastrostomy; D50.9 Iron deficiency anemia, unspecified; E11.65 Type 2 diabetes mellitus with hyperglycemia; F03.90 Unspecified dementia, unspecified severity, without behavioral disturbance, psychotic disturbance, mood disturbance, and anxiety; I10 Essential (primary) hypertension; I25.10 Atherosclerotic heart disease of native coronary artery without angina pectoris; I48.91 Unspecified atrial fibrillation; J44.9 Chronic obstructive pulmonary disease, unspecified; L89.90 Pressure ulcer of unspecified site, unspecified stage; R47.02 Dysphasia; K21.9 Gastro-esophageal reflux disease without esophagitis; M16.12 Unilateral primary osteoarthritis, left hip; I27.20 Pulmonary hypertension, unspecified; I34.0 Nonrheumatic mitral (valve) insufficiency; I36.1 Nonrheumatic tricuspid (valve) insufficiency; R13.10 Dysphagia, unspecified; Z79.82 Long term (current) use of aspirin; Z79.1 Long term (current) use of non-steroidal anti-inflammatories (NSAID); Z79.891 Long term (current) use of opiate analgesic; Z79.899 Other long term (current) drug therapy; Z68.32 Body mass index [BMI] 32.0-32.9, adult; Z46.89 Encounter for fitting and adjustment of other specified devices
CPT/HCPCS: 36415; 36573; 71045; 74176; 80048; 80053; 80202; 81003; 82270; 82607; 82728; 82962; 83036; 83540; 83550; 83605; 83735; 83880; 84100; 84484; 85025; 85044; 85651; 86850; 86900; 86920; 87077; 87186; 93005; 94640; 99285; A6261; C1725; C1893; J2543; J3370; J3490; J7030; J7040; J7060; P9016; P9021

== ENCOUNTER 2020-11-01 12:34 | Inpatient (IN) | payer MEDICARE, MEDICAID ==
[~2020-11-01] VITALS: Ht 170.2 cm; Wt 84.1 kg
[2020-11-01] VITALS (15 sets, daily range): BP systolic 44–132; BP diastolic 21–76
[~2020-11-01 12:34] MED LIST changes: +ASCO500C18 GT; +CLON0.1T GT; +ETOMIDATE 2MG/ML 10ML VIAL IV ONE; +FAMO20TA8 GT; +GABA-529 GT; +METO25TA6 GT; +VECURONIUM BROMIDE 10 MG/VIAL IV ONE; +ZINC220C6 GT
[2020-11-01] MEDS ORDERED: VANCOMYCIN 1 G PREMIX 200 ML IV ONE (13:15)
[2020-11-01] MEDS ORDERED: SODIUM CHLORIDE 0.9% 1000ML BAG (SEPSIS BOLUS) IV ONE (13:15)
[2020-11-01] MEDS ORDERED: PIPERACILLIN/TAZ 3.375G PREMIX 50 ML IV ONE (13:15)
[2020-11-01] MEDS ORDERED: NOREPINEPHRINE 8 MG in DEXT 5% WATER 242 ML IV STA (13:51)
[2020-11-01] MEDS ORDERED: NOREPINEPHRINE 8MG/250ML PMX 250 ML IV NR (14:00)
[2020-11-01] MEDS ORDERED: EPINEPHRINE 5 MG in SODIUM CHLORIDE 0.9% 245 ML IV PRN (15:00)
[2020-11-01 15:03] LABS: BASOPHILS % 1.4 % (0.0-2.0); EOSINOPHILS % 5.2 % (0.0-5.0); HEMATOCRIT. 26.4 % (36.0-48.0); LYMPHOCYTES % 32.9 % (20.0-50.0); MEAN CORPUSCULAR HEMOGLOBIN 27.3 pg (28.0-32.0); MEAN CORPUSCULAR VOLUME 89.7 fL (81.0-99.0); MEAN PLATELET VOLUME 9.7 fl (7.4-10.4); MONOCYTES % 8.3 % (2.0-8.0); NEUTROPHILS % 52.2 % (40.0-76.0); PLATELET 373 x1000/uL (130-400); RED BLOOD CELL COUNT 2.94 mill/uL (4.2-5.4); RED CELL DISTRIBUTION WIDTH 20.6 % (11.6-14.6)
[2020-11-01 15:25] LABS: CLARITY URINE CLOUDY (CLEAR); COLOR URINE YELLOW (YELLOW); KETONES URINE TRACE (NEGATIVE); LEUKOCYTE ESTERASE URINE 2+ (NEGATIVE); NITRITE URINE NEGATIVE (NEGATIVE); OCCULT BLOOD URINE 1+ (NEGATIVE); PH URINE 5.5 (4.5-8.0); PROTEIN URINE 1+ (NEGATIVE); SPECIFIC GRAVITY URINE 1.018 (1.005-1.030); UROBILINOGEN URINE 0.2 E.U./dL (0.2-1.0)
[2020-11-01] MEDS ORDERED: FENTANYL CITRATE/PF 2,500 MCG in SODIUM CHLORIDE 0.9% 200 ML IV PRN (15:30)
[2020-11-01] MEDS ORDERED: NOREPINEPHRINE 8MG/250ML PMX 250 ML IV SCH (15:45)
[2020-11-01] MEDS ORDERED: VANCOMYCIN 750 MG PREMIX 150 ML IV SCH (16:00)
[2020-11-01 16:13] LABS: BG BASE EXCESS 2.3 mmol/L (-2.0-2.0); BG CARBOXYHEMOGLOBIN 0.7 % (0.5-1.5); BG DEOXYHEMOGLOBIN 0.3 % (0.0-5.0); BG FRACTION INSPIRED OXYGEN 100; BG HCO3 ACT 28.6 mmol/L (22.0-26.0); BG METHEMOGLOBIN 0.5 % (0.0-1.5); BG OXYGEN SATURATION 99.7 % (92.0-98.5); BG OXYHEMOGLOBIN 98.5 % (94.0-97.0); BG PCO2 53.8 mmHg (35.0-45.0); BG PH 7.344 (7.350-7.450); BG PO2 271.2 mmHg (75.0-100.0); BG SAMPLE SITE RIGHT RADIAL; BG TOTAL HEMOGLOBIN 9.6 g/dL (12.0-18.0); BG TOTAL RESPIRATORY RATE 18 b/min; BG VENT MODE VENT - AC
[2020-11-01] MEDS ORDERED: ETOMIDATE 2MG/ML 10ML VIAL IV ONE (16:15)
[2020-11-01] MEDS ORDERED: VECURONIUM BROMIDE 10 MG/VIAL IV ONE (16:15)
[2020-11-01] MEDS ORDERED: MIDAZOLAM HCL 100 MG in SODIUM CHLORIDE 0.9% 80 ML IV ONE (16:30)
[2020-11-01] MEDS ORDERED: IPRATROPIUM/ALBUTEROL 0.5-3(2.5)MG/3ML NEB HHN PRN (16:45)
[2020-11-01] MEDS ORDERED: LORAZEPAM 2MG/ML CPJ IV ONE (17:00)
[2020-11-01 17:12] LABS: CHLORIDE 116 mEq/L (98-107)
[2020-11-01] MEDS: MEROPENEM 1,000 MG in SODIUM CHLORIDE 0.9% 100 ML IV SCH (17:31)
[2020-11-01] MEDS ORDERED: ONDANSETRON HCL 4MG/2ML INJ IV PRN (19:15)
[2020-11-01] MEDS ORDERED: IPRATROPIUM/ALBUTEROL 0.5-3(2.5)MG/3ML NEB NEB PRN (19:15)
[2020-11-01] MEDS ORDERED: DIPHENHYDRAMINE 50MG/ML VIAL IV PRN (19:15)
[2020-11-01] MEDS ORDERED: ACETAMINOPHEN 650MG/20.3ML UDC GT PRN ×2 (19:15)
[2020-11-01] MEDS: FENTANYL CITRATE/PF 2,500 MCG in SODIUM CHLORIDE 0.9% 200 ML IV PRN (20:00)
[2020-11-01] MEDS: IPRATROPIUM/ALBUTEROL 0.5-3(2.5)MG/3ML NEB HHN SCH (21:17)
[2020-11-01] MEDS ORDERED: NOREPINEPHRINE 8 MG in DEXT 5% WATER 242 ML IV PRN ×2 (21:30→23:00)
[2020-11-01] MEDS: DEXT 5%/0.45% NACL 1000ML 1,000 ML IV SCH (22:13)
[2020-11-01 23:16] LABS: INR 1.1; PROTHROMBIN TIME 11.3 sec (9.6-11.0)
[2020-11-02] VITALS (98 sets, daily range): BP systolic 51–154; BP diastolic 32–100
[2020-11-02] MEDS: ACETYLCYSTEINE 100MG/ML 10% VIAL 4ML INH SCH ×2 (00:29→09:09)
[2020-11-02] MEDS: IPRATROPIUM/ALBUTEROL 0.5-3(2.5)MG/3ML NEB HHN SCH ×5 (00:29→20:23)
[2020-11-02] MEDS: MEROPENEM 1,000 MG in SODIUM CHLORIDE 0.9% 100 ML IV SCH ×3 (01:46→17:34)
[2020-11-02] MEDS ORDERED: NOREPINEPHRINE 32 MG in DEXT 5% WATER 218 ML IV PRN (02:00)
[2020-11-02] MEDS ORDERED: MIDAZOLAM 100MG/100ML PMX 100 ML IV PRN (02:30)
[2020-11-02] MEDS ORDERED: MIDAZOLAM HCL 100 MG in SODIUM CHLORIDE 0.9% 100 ML IV PRN (02:30)
[2020-11-02 06:01] LABS: BASOPHILS % 0.6 % (0.0-2.0); HEMATOCRIT. 25.7 % (36.0-48.0); HEMOGLOBIN. 8.1 g/dL (12.0-16.0); LYMPHOCYTES % 22.2 % (20.0-50.0); MEAN CORPUSCULAR HEMOGLOBIN 27.4 pg (28.0-32.0); MEAN CORPUSCULAR VOLUME 86.4 fL (81.0-99.0); MEAN PLATELET VOLUME 9.8 fl (7.4-10.4); MONOCYTES % 7.7 % (2.0-8.0); NEUTROPHILS % 65.5 % (40.0-76.0); PLATELET 531 x1000/uL (130-400); RED BLOOD CELL COUNT 2.98 mill/uL (4.2-5.4); RED CELL DISTRIBUTION WIDTH 20.2 % (11.6-14.6)
[2020-11-02 06:17] LABS: PHOSPHORUS 3.2 mg/dL (2.5-4.9)
[2020-11-02 07:49] LABS: BG CARBOXYHEMOGLOBIN 0.3 % (0.5-1.5); BG DEOXYHEMOGLOBIN 0.1 % (0.0-5.0); BG HCO3 ACT 24.3 mmol/L (22.0-26.0); BG METHEMOGLOBIN 0.1 % (0.0-1.5); BG OXYGEN SATURATION 99.9 % (92.0-98.5); BG OXYHEMOGLOBIN 99.5 % (94.0-97.0); BG PH 7.424 (7.350-7.450); BG PO2 330.3 mmHg (75.0-100.0); BG SAMPLE SITE RIGHT RADIAL; BG VENT MODE VENT - AC
[2020-11-02] MEDS: PANTOPRAZOLE SODIUM 40 MG/VIAL IV SCH (09:08)
[2020-11-02] MEDS: ENOXAPARIN 40MG/0.4ML SYR SUBCUT SCH (09:09)
[2020-11-02] MEDS: DEXT 5%/0.45% NACL 1000ML 1,000 ML IV SCH (09:55)
[2020-11-02] MEDS ORDERED: MAGNESIUM 2 G PREMIX 50 ML IV NR (12:00)
[2020-11-02] MEDS: PHENYLEPHRINE 100 MG in DEXT 5% WATER 240 ML IV PRN ×2 (15:13→22:08)
[2020-11-02] MEDS ORDERED: VANCOMYCIN 750 MG PREMIX 150 ML IV SCH (16:00)
[2020-11-03] VITALS (101 sets, daily range): BP systolic 68–124; BP diastolic 29–87
[2020-11-03] MEDS: ACETYLCYSTEINE 100MG/ML 10% VIAL 4ML INH SCH ×4 (00:22→23:58)
[2020-11-03] MEDS: IPRATROPIUM/ALBUTEROL 0.5-3(2.5)MG/3ML NEB HHN SCH ×7 (00:22→23:58)
[2020-11-03] MEDS: DEXT 5%/0.45% NACL 1000ML 1,000 ML IV SCH ×2 (02:01→11:51)
[2020-11-03] MEDS: MEROPENEM 1,000 MG in SODIUM CHLORIDE 0.9% 100 ML IV SCH ×3 (02:01→17:10)
[2020-11-03] MEDS: PHENYLEPHRINE 100 MG in DEXT 5% WATER 240 ML IV PRN ×3 (05:14→19:04)
[2020-11-03 08:16] LABS: BG CARBOXYHEMOGLOBIN 0.5 % (0.5-1.5); BG DEOXYHEMOGLOBIN 1.2 % (0.0-5.0); BG FRACTION INSPIRED OXYGEN 35; BG HCO3 ACT 23.7 mmol/L (22.0-26.0); BG METHEMOGLOBIN 0.3 % (0.0-1.5); BG OXYGEN SATURATION 98.8 % (92.0-98.5); BG PCO2 39.3 mmHg (35.0-45.0); BG PH 7.398 (7.350-7.450); BG PO2 134.5 mmHg (75.0-100.0); BG SAMPLE SITE RIGHT RADIAL; BG TOTAL HEMOGLOBIN 8.2 g/dL (12.0-18.0); BG VENT MODE VENT - AC
[2020-11-03] MEDS: ENOXAPARIN 40MG/0.4ML SYR SUBCUT SCH (08:26)
[2020-11-03] MEDS: PANTOPRAZOLE SODIUM 40 MG/VIAL IV SCH (08:26)
[2020-11-03] MEDS: VANCOMYCIN 750 MG PREMIX 150 ML IV SCH (17:09)
[2020-11-04] VITALS (97 sets, daily range): BP systolic 79–122; BP diastolic 34–76
[2020-11-04] MEDS: DEXT 5%/0.45% NACL 1000ML 1,000 ML IV SCH ×2 (01:00→11:02)
[2020-11-04] MEDS: MEROPENEM 1,000 MG in SODIUM CHLORIDE 0.9% 100 ML IV SCH ×3 (01:00→17:12)
[2020-11-04] MEDS: PHENYLEPHRINE 100 MG in DEXT 5% WATER 240 ML IV PRN ×4 (02:00→23:34)
[2020-11-04] MEDS: IPRATROPIUM/ALBUTEROL 0.5-3(2.5)MG/3ML NEB HHN SCH ×4 (03:55→20:25)
[2020-11-04 06:09] LABS: CHLORIDE 112 mEq/L (98-107)
[2020-11-04 06:11] LABS: BASOPHILS % 0.4 % (0.0-2.0); EOSINOPHILS % 6.6 % (0.0-5.0); HEMATOCRIT. 25.8 % (36.0-48.0); HEMOGLOBIN. 7.8 g/dL (12.0-16.0); LYMPHOCYTES % 7.3 % (20.0-50.0); MEAN CORPUSCULAR HEMOGLOBIN 26.2 pg (28.0-32.0); MEAN CORPUSCULAR VOLUME 86.3 fL (81.0-99.0); MEAN PLATELET VOLUME 9.3 fl (7.4-10.4); MONOCYTES % 5.5 % (2.0-8.0); NEUTROPHILS % 80.2 % (40.0-76.0); PLATELET 453 x1000/uL (130-400); RED BLOOD CELL COUNT 2.99 mill/uL (4.2-5.4); RED CELL DISTRIBUTION WIDTH 20.7 % (11.6-14.6)
[2020-11-04] MEDS: ACETYLCYSTEINE 100MG/ML 10% VIAL 4ML INH SCH ×2 (07:46→15:46)
[2020-11-04 08:02] LABS: BG BASE EXCESS -2.7 mmol/L (-2.0-2.0); BG CARBOXYHEMOGLOBIN 0.4 % (0.5-1.5); BG DEOXYHEMOGLOBIN 1.9 % (0.0-5.0); BG HCO3 ACT 23.5 mmol/L (22.0-26.0); BG METHEMOGLOBIN 0.3 % (0.0-1.5); BG OXYGEN SATURATION 98.1 % (92.0-98.5); BG OXYHEMOGLOBIN 97.4 % (94.0-97.0); BG PCO2 47.7 mmHg (35.0-45.0); BG PO2 105.7 mmHg (75.0-100.0); BG SAMPLE SITE RIGHT RADIAL; BG TOTAL HEMOGLOBIN 7.9 g/dL (12.0-18.0); BG TOTAL RESPIRATORY RATE 8 b/min; BG VENT MODE VENT - SIMV
[2020-11-04] MEDS: PANTOPRAZOLE SODIUM 40 MG/VIAL IV SCH (09:18)
[2020-11-04] MEDS: ENOXAPARIN 40MG/0.4ML SYR SUBCUT SCH (11:04)
[2020-11-04] MEDS: VANCOMYCIN 750 MG PREMIX 150 ML IV SCH (18:05)
[2020-11-04] MEDS: VASOPRESSIN 20 UNIT in SODIUM CHLORIDE 0.9% 99 ML IV PRN (22:12)
[2020-11-05] VITALS (87 sets, daily range): BP systolic 44–131; BP diastolic 22–74
[2020-11-05] MEDS: IPRATROPIUM/ALBUTEROL 0.5-3(2.5)MG/3ML NEB HHN SCH ×6 (00:05→19:53)
[2020-11-05] MEDS: ACETYLCYSTEINE 100MG/ML 10% VIAL 4ML INH SCH ×3 (00:05→16:05)
[2020-11-05] MEDS: MEROPENEM 1,000 MG in SODIUM CHLORIDE 0.9% 100 ML IV SCH ×3 (00:08→17:24)
[2020-11-05] MEDS: DEXT 5%/0.45% NACL 1000ML 1,000 ML IV SCH ×2 (03:14→17:23)
[2020-11-05] MEDS: PHENYLEPHRINE 100 MG in DEXT 5% WATER 240 ML IV PRN ×3 (05:41→21:12)
[2020-11-05] MEDS: VASOPRESSIN 20 UNIT in SODIUM CHLORIDE 0.9% 99 ML IV PRN ×3 (05:42→22:44)
[2020-11-05 05:44] LABS: CHLORIDE 107 mEq/L (98-107)
[2020-11-05 05:46] LABS: HEMATOCRIT. 24.1 % (36.0-48.0); HEMOGLOBIN. 7.6 g/dL (12.0-16.0); MEAN CORPUSCULAR HEMOGLOBIN 27.2 pg (28.0-32.0); MEAN CORPUSCULAR VOLUME 86.5 fL (81.0-99.0); MEAN PLATELET VOLUME 9.1 fl (7.4-10.4); PLATELET 415 x1000/uL (130-400); RED BLOOD CELL COUNT 2.79 mill/uL (4.2-5.4); RED CELL DISTRIBUTION WIDTH 20.1 % (11.6-14.6)
[2020-11-05 08:31] LABS: PLATELET ESTIMATE INCREASED
[2020-11-05 08:33] LABS: BG BASE EXCESS -5.8 mmol/L (-2.0-2.0); BG CARBOXYHEMOGLOBIN 0.1 % (0.5-1.5); BG DEOXYHEMOGLOBIN 1.6 % (0.0-5.0); BG FRACTION INSPIRED OXYGEN 35; BG HCO3 ACT 20.5 mmol/L (22.0-26.0); BG METHEMOGLOBIN 0.4 % (0.0-1.5); BG OXYGEN SATURATION 98.4 % (92.0-98.5); BG OXYHEMOGLOBIN 97.9 % (94.0-97.0); BG PCO2 44.1 mmHg (35.0-45.0); BG PH 7.285 (7.350-7.450); BG PO2 125.4 mmHg (75.0-100.0); BG SAMPLE SITE RIGHT BRACHIAL; BG TOTAL HEMOGLOBIN 8.4 g/dL (12.0-18.0); BG TOTAL RESPIRATORY RATE 19 b/min; BG VENT MODE VENT - SIMV
[2020-11-05] MEDS: PANTOPRAZOLE SODIUM 40 MG/VIAL IV SCH (08:56)
[2020-11-05] MEDS: ENOXAPARIN 40MG/0.4ML SYR SUBCUT SCH (08:57)
[2020-11-05] MEDS: METRONIDAZOLE 500MG TABLET PO SCH ×2 (14:00→22:00)
[2020-11-05] MEDS: VANCOMYCIN 750 MG PREMIX 150 ML IV SCH (17:24)
[2020-11-05] MEDS: FENTANYL CITRATE/PF 2,500 MCG in SODIUM CHLORIDE 0.9% 200 ML IV PRN (21:36)
[2020-11-06] VITALS (83 sets, daily range): BP systolic 30–141; BP diastolic 17–93
[2020-11-06] MEDS: ACETYLCYSTEINE 100MG/ML 10% VIAL 4ML INH SCH ×3 (00:23→16:50)
[2020-11-06] MEDS: IPRATROPIUM/ALBUTEROL 0.5-3(2.5)MG/3ML NEB HHN SCH ×6 (00:23→19:51)
[2020-11-06] MEDS: MEROPENEM 1,000 MG in SODIUM CHLORIDE 0.9% 100 ML IV SCH ×3 (00:53→16:25)
[2020-11-06] MEDS: PHENYLEPHRINE 100 MG in DEXT 5% WATER 240 ML IV PRN ×4 (02:12→23:26)
[2020-11-06] MEDS: FENTANYL CITRATE/PF 2,500 MCG in SODIUM CHLORIDE 0.9% 200 ML IV PRN (02:18)
[2020-11-06] MEDS ORDERED: NOREPINEPHRINE 8MG/250ML PMX 250 ML IV PRN (09:00)
[2020-11-06] MEDS: VASOPRESSIN 20 UNIT in SODIUM CHLORIDE 0.9% 99 ML IV PRN ×2 (09:08→17:45)
[2020-11-06] MEDS: PANTOPRAZOLE SODIUM 40 MG/VIAL IV SCH (09:23)
[2020-11-06] MEDS: ENOXAPARIN 40MG/0.4ML SYR SUBCUT SCH (09:24)
[2020-11-06] MEDS: DEXT 5%/0.45% NACL 1000ML 1,000 ML IV SCH (09:25)
[2020-11-06 09:34] LABS: HEMATOCRIT. 25.3 % (36.0-48.0); HEMOGLOBIN. 7.9 g/dL (12.0-16.0); MEAN CORPUSCULAR HEMOGLOBIN 27.3 pg (28.0-32.0); MEAN CORPUSCULAR VOLUME 87.9 fL (81.0-99.0); MEAN PLATELET VOLUME 9.1 fl (7.4-10.4); PLATELET 386 x1000/uL (130-400); RED BLOOD CELL COUNT 2.88 mill/uL (4.2-5.4); RED CELL DISTRIBUTION WIDTH 20.6 % (11.6-14.6)
[2020-11-06] MEDS: NOREPINEPHRINE 8 MG in DEXTROSE 5% WATER 250 ML IV PRN (09:48)
[2020-11-06 09:58] LABS: BG BASE EXCESS -9.7 mmol/L (-2.0-2.0); BG CARBOXYHEMOGLOBIN 0.3 % (0.5-1.5); BG DEOXYHEMOGLOBIN 1.7 % (0.0-5.0); BG FRACTION INSPIRED OXYGEN 35; BG METHEMOGLOBIN 0.6 % (0.0-1.5); BG OXYGEN SATURATION 98.3 % (92.0-98.5); BG OXYHEMOGLOBIN 97.4 % (94.0-97.0); BG PCO2 67.2 mmHg (35.0-45.0); BG PH 7.092 (7.350-7.450); BG PO2 131.6 mmHg (75.0-100.0); BG SAMPLE SITE RIGHT RADIAL; BG VENT MODE VENT - AC
[2020-11-06] MEDS: FUROSEMIDE 40MG/4ML VIAL IVP SCH (11:29)
[2020-11-06 12:25] LABS: BG BASE EXCESS -9.5 mmol/L (-2.0-2.0); BG CARBOXYHEMOGLOBIN 0.7 % (0.5-1.5); BG DEOXYHEMOGLOBIN 4.6 % (0.0-5.0); BG FRACTION INSPIRED OXYGEN 35; BG HCO3 ACT 16.9 mmol/L (22.0-26.0); BG METHEMOGLOBIN 0.2 % (0.0-1.5); BG OXYGEN SATURATION 95.4 % (92.0-98.5); BG OXYHEMOGLOBIN 94.5 % (94.0-97.0); BG PCO2 38.7 mmHg (35.0-45.0); BG PH 7.257 (7.350-7.450); BG PO2 69.7 mmHg (75.0-100.0); BG SAMPLE SITE RIGHT RADIAL; BG TOTAL HEMOGLOBIN 8.8 g/dL (12.0-18.0); BG VENT MODE VENT - AC
[2020-11-06] MEDS: METRONIDAZOLE 500MG TABLET PO SCH ×2 (14:00→21:34)
[2020-11-06] MEDS: MICAFUNGIN 100 MG in SODIUM CHLORIDE 0.9% 100 ML IV SCH (14:43)
[2020-11-06] MEDS ORDERED: SODIUM BICARBONATE 8.4% 1 MEQ/ML 50ML SYR IV NR (15:15)
[2020-11-06 16:09] LABS: NUCLEATED RED BLOOD CELLS 2 /100 WBC; PLATELET ESTIMATE NORMAL
[2020-11-06] MEDS: VANCOMYCIN 750 MG PREMIX 150 ML IV SCH (17:44)
[2020-11-07] VITALS (93 sets, daily range): BP systolic 74–173; BP diastolic 32–140
[2020-11-07] MEDS: IPRATROPIUM/ALBUTEROL 0.5-3(2.5)MG/3ML NEB HHN SCH ×7 (00:15→23:36)
[2020-11-07] MEDS: VASOPRESSIN 20 UNIT in SODIUM CHLORIDE 0.9% 99 ML IV PRN ×2 (02:45→19:58)
[2020-11-07] MEDS: MEROPENEM 1000MG in NORMAL SALINE 100ML IV SCH ×2 (05:48→18:00)
[2020-11-07] MEDS: METRONIDAZOLE 500MG TABLET PO SCH ×3 (06:06→21:47)
[2020-11-07 06:13] LABS: HEMATOCRIT. 25.5 % (36.0-48.0); HEMOGLOBIN. 8.2 g/dL (12.0-16.0); MEAN CORPUSCULAR HEMOGLOBIN 26.9 pg (28.0-32.0); MEAN CORPUSCULAR VOLUME 83.9 fL (81.0-99.0); MEAN PLATELET VOLUME 9.1 fl (7.4-10.4); PLATELET 338 x1000/uL (130-400); RED BLOOD CELL COUNT 3.04 mill/uL (4.2-5.4); RED CELL DISTRIBUTION WIDTH 20.7 % (11.6-14.6)
[2020-11-07] MEDS: PHENYLEPHRINE 100 MG in DEXT 5% WATER 240 ML IV PRN ×3 (06:58→21:53)
[2020-11-07 08:09] LABS: BG BASE EXCESS -6.1 mmol/L (-2.0-2.0); BG CARBOXYHEMOGLOBIN 0.1 % (0.5-1.5); BG HCO3 ACT 18.2 mmol/L (22.0-26.0); BG METHEMOGLOBIN 0.2 % (0.0-1.5); BG OXYHEMOGLOBIN 98.7 % (94.0-97.0); BG PCO2 31.3 mmHg (35.0-45.0); BG PH 7.382 (7.350-7.450); BG SAMPLE SITE RIGHT RADIAL; BG TOTAL HEMOGLOBIN 9.3 g/dL (12.0-18.0); BG VENT MODE VENT - AC
[2020-11-07] MEDS: FUROSEMIDE 40MG/4ML VIAL IVP SCH (09:00)
[2020-11-07] MEDS: ENOXAPARIN 40MG/0.4ML SYR SUBCUT SCH (09:00)
[2020-11-07] MEDS: PANTOPRAZOLE SODIUM 40 MG/VIAL IV SCH (09:00)
[2020-11-07] MEDS: MICAFUNGIN 100 MG in SODIUM CHLORIDE 0.9% 100 ML IV SCH (15:31)
[2020-11-08] VITALS (94 sets, daily range): BP systolic 51–160; BP diastolic 23–111
[2020-11-08] MEDS: IPRATROPIUM/ALBUTEROL 0.5-3(2.5)MG/3ML NEB HHN SCH ×6 (02:58→23:44)
[2020-11-08] MEDS: PHENYLEPHRINE 100 MG in DEXT 5% WATER 240 ML IV PRN ×3 (04:53→18:48)
[2020-11-08] MEDS: MEROPENEM 1000MG in NORMAL SALINE 100ML IV SCH ×2 (05:42→17:21)
[2020-11-08] MEDS: METRONIDAZOLE 500MG TABLET PO SCH ×3 (05:45→22:00)
[2020-11-08] MEDS: ENOXAPARIN 40MG/0.4ML SYR SUBCUT SCH (09:16)
[2020-11-08] MEDS: PANTOPRAZOLE SODIUM 40 MG/VIAL IV SCH (09:16)
[2020-11-08] MEDS: FUROSEMIDE 40MG/4ML VIAL IVP SCH (09:16)
[2020-11-08] MEDS: VASOPRESSIN 20 UNIT in SODIUM CHLORIDE 0.9% 99 ML IV PRN ×2 (09:18→17:42)
[2020-11-08 10:39] LABS: BG BASE EXCESS -2.4 mmol/L (-2.0-2.0); BG CARBOXYHEMOGLOBIN 0.5 % (0.5-1.5); BG DEOXYHEMOGLOBIN 2.5 % (0.0-5.0); BG FRACTION INSPIRED OXYGEN 30; BG HCO3 ACT 20.3 mmol/L (22.0-26.0); BG METHEMOGLOBIN 0.5 % (0.0-1.5); BG OXYGEN SATURATION 97.5 % (92.0-98.5); BG OXYHEMOGLOBIN 96.5 % (94.0-97.0); BG PH 7.493 (7.350-7.450); BG SAMPLE SITE RIGHT RADIAL; BG TOTAL HEMOGLOBIN 8.5 g/dL (12.0-18.0); BG VENT MODE VENT - AC
[2020-11-08] MEDS ORDERED: SODIUM CHLORIDE 0.9% 1,000 ML IV SCH (11:30)
[2020-11-08] MEDS: MICAFUNGIN 100 MG in SODIUM CHLORIDE 0.9% 100 ML IV SCH (14:47)
[2020-11-08] MEDS: MORPHINE SULFATE 2 MG/ML CPJ (NOT FOR IM USE) IV PRN (15:28)
[2020-11-08] MEDS ORDERED: NALOXONE HCL 0.4MG/ML VIAL IV PRN (15:30)
[2020-11-08 16:21] LABS: PLATELET ESTIMATE NORMAL
[2020-11-08] MEDS: DEXT 5%/0.45% NACL 1000ML 1,000 ML IV SCH (17:21)
[2020-11-09] VITALS (95 sets, daily range): BP systolic 47–122; BP diastolic 25–108
[2020-11-09] MEDS: VASOPRESSIN 20 UNIT in SODIUM CHLORIDE 0.9% 99 ML IV PRN ×3 (01:01→16:45)
[2020-11-09] MEDS: PHENYLEPHRINE 100 MG in DEXT 5% WATER 240 ML IV PRN ×4 (01:06→23:25)
[2020-11-09] MEDS: IPRATROPIUM/ALBUTEROL 0.5-3(2.5)MG/3ML NEB HHN SCH ×5 (04:19→20:51)
[2020-11-09] MEDS: MEROPENEM 1000MG in NORMAL SALINE 100ML IV SCH ×2 (05:41→19:18)
[2020-11-09] MEDS: METRONIDAZOLE 500MG TABLET PO SCH ×3 (06:00→21:56)
[2020-11-09 06:21] LABS: BASOPHILS % 0.2 % (0.0-2.0); EOSINOPHILS % 1.1 % (0.0-5.0); HEMATOCRIT. 24.9 % (36.0-48.0); LYMPHOCYTES % 10.7 % (20.0-50.0); MEAN CORPUSCULAR HEMOGLOBIN 26.7 pg (28.0-32.0); MONOCYTES % 4.1 % (2.0-8.0); NEUTROPHILS % 83.9 % (40.0-76.0); PLATELET 303 x1000/uL (130-400); RED CELL DISTRIBUTION WIDTH 20.4 % (11.6-14.6)
[2020-11-09] MEDS ORDERED: POTASSIUM CHLORIDE INJ 40 MEQ in DEXT 5% WATER 250 ML IV ONE (09:00)
[2020-11-09 09:01] LABS: BG BASE EXCESS -2.7 mmol/L (-2.0-2.0); BG CARBOXYHEMOGLOBIN 0.4 % (0.5-1.5); BG DEOXYHEMOGLOBIN 1.1 % (0.0-5.0); BG FRACTION INSPIRED OXYGEN 30; BG HCO3 ACT 20.9 mmol/L (22.0-26.0); BG METHEMOGLOBIN 0.5 % (0.0-1.5); BG OXYGEN SATURATION 98.9 % (92.0-98.5); BG PCO2 31.6 mmHg (35.0-45.0); BG PH 7.438 (7.350-7.450); BG PO2 136.7 mmHg (75.0-100.0); BG SAMPLE SITE RIGHT RADIAL; BG VENT MODE VENT - AC
[2020-11-09] MEDS: PANTOPRAZOLE SODIUM 40 MG/VIAL IV SCH (09:26)
[2020-11-09] MEDS: ENOXAPARIN 40MG/0.4ML SYR SUBCUT SCH (09:27)
[2020-11-09] MEDS: DEXT 5%/0.45% NACL 1000ML 1,000 ML IV SCH (09:27)
[2020-11-09] MEDS: MICAFUNGIN 100 MG in SODIUM CHLORIDE 0.9% 100 ML IV SCH (13:55)
[2020-11-09] MEDS: MORPHINE SULFATE 2 MG/ML CPJ (NOT FOR IM USE) IV PRN (17:13)
[2020-11-10] VITALS (94 sets, daily range): BP systolic 79–127; BP diastolic 44–95
[2020-11-10] MEDS: IPRATROPIUM/ALBUTEROL 0.5-3(2.5)MG/3ML NEB HHN SCH ×6 (00:44→20:24)
[2020-11-10] MEDS: VASOPRESSIN 20 UNIT in SODIUM CHLORIDE 0.9% 99 ML IV PRN ×2 (01:13→10:52)
[2020-11-10] MEDS: DEXT 5%/0.45% NACL 1000ML 1,000 ML IV SCH ×2 (02:11→17:00)
[2020-11-10] MEDS: MORPHINE SULFATE 2 MG/ML CPJ (NOT FOR IM USE) IV PRN ×2 (02:38→15:51)
[2020-11-10] MEDS: MEROPENEM 1000MG in NORMAL SALINE 100ML IV SCH ×2 (05:03→17:03)
[2020-11-10] MEDS: METRONIDAZOLE 500MG TABLET PO SCH ×2 (05:28→14:48)
[2020-11-10] MEDS: PHENYLEPHRINE 100 MG in DEXT 5% WATER 240 ML IV PRN ×3 (06:47→21:43)
[2020-11-10] MEDS: PANTOPRAZOLE SODIUM 40 MG/VIAL IV SCH (08:05)
[2020-11-10] MEDS: ENOXAPARIN 40MG/0.4ML SYR SUBCUT SCH (08:05)
[2020-11-10 08:28] LABS: BG BASE EXCESS -6.7 mmol/L (-2.0-2.0); BG CARBOXYHEMOGLOBIN 0.3 % (0.5-1.5); BG OXYHEMOGLOBIN 98.7 % (94.0-97.0); BG PCO2 33.2 mmHg (35.0-45.0); BG PH 7.353 (7.350-7.450); BG PO2 149.4 mmHg (75.0-100.0); BG SAMPLE SITE RIGHT RADIAL; BG TOTAL HEMOGLOBIN 9.3 g/dL (12.0-18.0); BG VENT MODE VENT - AC
[2020-11-10 09:39] LABS: HEMATOCRIT. 27.3 % (36.0-48.0); HEMOGLOBIN. 8.9 g/dL (12.0-16.0); MEAN CORPUSCULAR HEMOGLOBIN 27.2 pg (28.0-32.0); MEAN CORPUSCULAR VOLUME 83.6 fL (81.0-99.0); MEAN PLATELET VOLUME 8.8 fl (7.4-10.4); PLATELET 254 x1000/uL (130-400); RED BLOOD CELL COUNT 3.26 mill/uL (4.2-5.4); RED CELL DISTRIBUTION WIDTH 20.7 % (11.6-14.6)
[2020-11-10 10:56] LABS: BG BASE EXCESS -5.2 mmol/L (-2.0-2.0); BG CARBOXYHEMOGLOBIN 0.1 % (0.5-1.5); BG HCO3 ACT 19.8 mmol/L (22.0-26.0); BG METHEMOGLOBIN 0.4 % (0.0-1.5); BG OXYHEMOGLOBIN 98.5 % (94.0-97.0); BG PCO2 36.7 mmHg (35.0-45.0); BG PO2 142.9 mmHg (75.0-100.0); BG SAMPLE SITE RIGHT RADIAL; BG TOTAL HEMOGLOBIN 9.7 g/dL (12.0-18.0); BG VENT MODE VENT - CPAP
[2020-11-10 13:41] LABS: NUCLEATED RED BLOOD CELLS 1 /100 WBC; PLATELET ESTIMATE NORMAL
[2020-11-10] MEDS: MICAFUNGIN 100 MG in SODIUM CHLORIDE 0.9% 100 ML IV SCH (14:09)
[2020-11-11] VITALS (98 sets, daily range): BP systolic 76–126; BP diastolic 47–115
[2020-11-11] MEDS: IPRATROPIUM/ALBUTEROL 0.5-3(2.5)MG/3ML NEB HHN SCH ×5 (00:23→20:56)
[2020-11-11] MEDS: PHENYLEPHRINE 100 MG in DEXT 5% WATER 240 ML IV PRN ×3 (04:56→17:41)
[2020-11-11 05:44] LABS: CHLORIDE 104 mEq/L (98-107)
[2020-11-11 05:52] LABS: BASOPHILS % 0.3 % (0.0-2.0); EOSINOPHILS % 2.1 % (0.0-5.0); HEMATOCRIT. 25.9 % (36.0-48.0); HEMOGLOBIN. 8.3 g/dL (12.0-16.0); MEAN CORPUSCULAR HEMOGLOBIN 26.4 pg (28.0-32.0); MEAN CORPUSCULAR VOLUME 81.9 fL (81.0-99.0); MEAN PLATELET VOLUME 9.3 fl (7.4-10.4); MONOCYTES % 6.9 % (2.0-8.0); NEUTROPHILS % 80.7 % (40.0-76.0); PLATELET 239 x1000/uL (130-400); RED BLOOD CELL COUNT 3.16 mill/uL (4.2-5.4); RED CELL DISTRIBUTION WIDTH 20.8 % (11.6-14.6)
[2020-11-11] MEDS: ENOXAPARIN 40MG/0.4ML SYR SUBCUT SCH (08:21)
[2020-11-11] MEDS: MEROPENEM 1000MG in NORMAL SALINE 100ML IV SCH ×2 (08:21→17:41)
[2020-11-11] MEDS: PANTOPRAZOLE SODIUM 40 MG/VIAL IV SCH (08:21)
[2020-11-11] MEDS: DEXT 5%/0.45% NACL 1000ML 1,000 ML IV SCH ×2 (08:22→23:00)
[2020-11-11 11:11] LABS: BG BASE EXCESS -6.8 mmol/L (-2.0-2.0); BG CARBOXYHEMOGLOBIN 0.3 % (0.5-1.5); BG FRACTION INSPIRED OXYGEN 30; BG HCO3 ACT 18.4 mmol/L (22.0-26.0); BG METHEMOGLOBIN 0.7 % (0.0-1.5); BG PCO2 35.2 mmHg (35.0-45.0); BG PH 7.335 (7.350-7.450); BG PO2 101.4 mmHg (75.0-100.0); BG SAMPLE SITE RIGHT RADIAL; BG TOTAL HEMOGLOBIN 9.4 g/dL (12.0-18.0); BG VENT MODE VENT - CPAP
[2020-11-11] MEDS: MICAFUNGIN 100 MG in SODIUM CHLORIDE 0.9% 100 ML IV SCH (14:32)
[2020-11-11 16:25] LABS: BG CARBOXYHEMOGLOBIN 0.3 % (0.5-1.5); BG DEOXYHEMOGLOBIN 2.6 % (0.0-5.0); BG FRACTION INSPIRED OXYGEN 35; BG HCO3 ACT 18.6 mmol/L (22.0-26.0); BG OXYGEN SATURATION 97.4 % (92.0-98.5); BG OXYHEMOGLOBIN 97.1 % (94.0-97.0); BG PCO2 37.4 mmHg (35.0-45.0); BG PH 7.314 (7.350-7.450); BG SAMPLE SITE RIGHT RADIAL; BG TOTAL HEMOGLOBIN 10.1 g/dL (12.0-18.0); BG VENT MODE COOL AEROSOL
[2020-11-12] VITALS (99 sets, daily range): BP systolic 65–125; BP diastolic 30–88
[2020-11-12] MEDS: IPRATROPIUM/ALBUTEROL 0.5-3(2.5)MG/3ML NEB HHN SCH ×3 (00:16→09:17)
[2020-11-12] MEDS: PHENYLEPHRINE 100 MG in DEXT 5% WATER 240 ML IV PRN ×3 (03:00→17:28)
[2020-11-12] MEDS: MORPHINE SULFATE 2 MG/ML CPJ (NOT FOR IM USE) IV PRN ×3 (04:43→16:23)
[2020-11-12] MEDS: MEROPENEM 1000MG in NORMAL SALINE 100ML IV SCH ×2 (05:23→18:03)
[2020-11-12] MEDS: PANTOPRAZOLE SODIUM 40 MG/VIAL IV SCH (08:36)
[2020-11-12] MEDS: ENOXAPARIN 40MG/0.4ML SYR SUBCUT SCH (08:37)
[2020-11-12] MEDS: DEXT 5%/0.45% NACL 1000ML 1,000 ML IV SCH (08:44)
[2020-11-12 09:37] LABS: HEMATOCRIT. 25.8 % (36.0-48.0); HEMOGLOBIN. 7.9 g/dL (12.0-16.0); MEAN CORPUSCULAR HEMOGLOBIN 25.9 pg (28.0-32.0); MEAN CORPUSCULAR VOLUME 84.2 fL (81.0-99.0); MEAN PLATELET VOLUME 9.2 fl (7.4-10.4); PLATELET 123 x1000/uL (130-400); RED BLOOD CELL COUNT 3.06 mill/uL (4.2-5.4); RED CELL DISTRIBUTION WIDTH 20.6 % (11.6-14.6)
[2020-11-12 09:42] LABS: CHLORIDE 104 mEq/L (98-107)
[2020-11-12 10:04] LABS: BG BASE EXCESS -5.8 mmol/L (-2.0-2.0); BG CARBOXYHEMOGLOBIN 1.3 % (0.5-1.5); BG DEOXYHEMOGLOBIN 6.1 % (0.0-5.0); BG FRACTION INSPIRED OXYGEN 21; BG HCO3 ACT 19.7 mmol/L (22.0-26.0); BG METHEMOGLOBIN 0.5 % (0.0-1.5); BG OXYGEN SATURATION 93.8 % (92.0-98.5); BG OXYHEMOGLOBIN 92.1 % (94.0-97.0); BG PCO2 38.5 mmHg (35.0-45.0); BG PH 7.326 (7.350-7.450); BG PO2 68.9 mmHg (75.0-100.0); BG SAMPLE SITE RIGHT RADIAL; BG TOTAL HEMOGLOBIN 8.1 g/dL (12.0-18.0); BG VENT MODE ROOM AIR
[2020-11-12] MEDS: MIDODRINE HCL 5MG TABLET PO SCH ×2 (10:57→12:14)
[2020-11-12] MEDS: VASOPRESSIN 20 UNIT in SODIUM CHLORIDE 0.9% 99 ML IV PRN ×2 (12:07→19:10)
[2020-11-12] MEDS: IPRATROPIUM BROMIDE (0.02%) 0.5MG/2.5ML NEB HHN SCH ×3 (12:10→20:01)
[2020-11-12] MEDS: ACETYLCYSTEINE 100MG/ML 10% VIAL 4ML INH SCH (16:37)
[2020-11-12] MEDS: MIDODRINE HCL 5MG TABLET GT SCH (21:34)
[2020-11-12] MEDS: DEXT 5%/0.9% NACL 1,000 ML IV SCH (21:35)
[2020-11-13] VITALS (108 sets, daily range): BP systolic 78–134; BP diastolic 44–95
[2020-11-13] MEDS: ACETYLCYSTEINE 100MG/ML 10% VIAL 4ML INH SCH ×3 (00:06→14:07)
[2020-11-13] MEDS: IPRATROPIUM BROMIDE (0.02%) 0.5MG/2.5ML NEB HHN SCH ×6 (00:06→20:51)
[2020-11-13] MEDS: PHENYLEPHRINE 100 MG in DEXT 5% WATER 240 ML IV PRN ×4 (00:24→20:37)
[2020-11-13] MEDS: MORPHINE SULFATE 2 MG/ML CPJ (NOT FOR IM USE) IV PRN (03:04)
[2020-11-13] MEDS: MEROPENEM 1000MG in NORMAL SALINE 100ML IV SCH (05:57)
[2020-11-13] MEDS: MIDODRINE HCL 5MG TABLET GT SCH ×2 (05:59→22:27)
[2020-11-13] MEDS: VASOPRESSIN 20 UNIT in SODIUM CHLORIDE 0.9% 99 ML IV PRN ×2 (06:00→21:27)
[2020-11-13 08:10] LABS: PLATELET ESTIMATE SLIGHTLY DECREASED
[2020-11-13] MEDS: ENOXAPARIN 40MG/0.4ML SYR SUBCUT SCH (09:00)
[2020-11-13] MEDS: PANTOPRAZOLE SODIUM 40 MG/VIAL IV SCH (09:16)
[2020-11-13 12:11] LABS: HEMATOCRIT. 25.7 % (36.0-48.0); HEMOGLOBIN. 8.2 g/dL (12.0-16.0); MEAN CORPUSCULAR HEMOGLOBIN 26.1 pg (28.0-32.0); MEAN CORPUSCULAR VOLUME 81.7 fL (81.0-99.0); PLATELET 108 x1000/uL (130-400); RED BLOOD CELL COUNT 3.15 mill/uL (4.2-5.4); RED CELL DISTRIBUTION WIDTH 20.3 % (11.6-14.6)
[2020-11-13 12:21] LABS: CHLORIDE 109 mEq/L (98-107)
[2020-11-13] MEDS ORDERED: MIDODRINE HCL 5MG TABLET GT SCH (14:00)
[2020-11-13] MEDS ORDERED: MIDAZOLAM HCL 100 MG in SODIUM CHLORIDE 0.9% 80 ML IV PRN (16:00)
[2020-11-13] MEDS: MEROPENEM 1,000 MG in SODIUM CHLORIDE 0.9% 100 ML IV SCH ×2 (16:13→22:26)
[2020-11-13] MEDS: METRONIDAZOLE 500 MG PREMIX 100 ML IV SCH ×2 (16:14→23:43)
[2020-11-13 17:13] LABS: PLATELET ESTIMATE DECREASED
[2020-11-13] MEDS: METOCLOPRAMIDE HCL 10MG/2ML VIAL IV SCH ×2 (17:52→23:43)
[2020-11-13] MEDS: DEXT 5%/0.9% NACL 1,000 ML IV SCH (17:52)
[2020-11-14] VITALS (99 sets, daily range): BP systolic 34–134; BP diastolic 15–94
[2020-11-14] MEDS: ACETYLCYSTEINE 100MG/ML 10% VIAL 4ML INH SCH ×3 (01:20→16:36)
[2020-11-14] MEDS: IPRATROPIUM BROMIDE (0.02%) 0.5MG/2.5ML NEB HHN SCH ×6 (01:20→20:36)
[2020-11-14] MEDS: PHENYLEPHRINE 100 MG in DEXT 5% WATER 240 ML IV PRN ×3 (02:53→19:54)
[2020-11-14] MEDS: MEROPENEM 1,000 MG in SODIUM CHLORIDE 0.9% 100 ML IV SCH ×3 (05:25→22:15)
[2020-11-14] MEDS: METOCLOPRAMIDE HCL 10MG/2ML VIAL IV SCH ×3 (05:26→18:45)
[2020-11-14] MEDS: MIDODRINE HCL 5MG TABLET GT SCH ×3 (05:26→22:16)
[2020-11-14] MEDS: VASOPRESSIN 20 UNIT in SODIUM CHLORIDE 0.9% 99 ML IV PRN ×3 (06:36→19:54)
[2020-11-14 06:46] LABS: CHLORIDE 107 mEq/L (98-107)
[2020-11-14 06:53] LABS: HEMATOCRIT. 26.1 % (36.0-48.0); HEMOGLOBIN. 8.3 g/dL (12.0-16.0); MEAN CORPUSCULAR HEMOGLOBIN 26.4 pg (28.0-32.0); MEAN CORPUSCULAR VOLUME 83.5 fL (81.0-99.0); MEAN PLATELET VOLUME 10.2 fl (7.4-10.4); PLATELET 107 x1000/uL (130-400); RED BLOOD CELL COUNT 3.12 mill/uL (4.2-5.4); RED CELL DISTRIBUTION WIDTH 21.2 % (11.6-14.6)
[2020-11-14] MEDS: METRONIDAZOLE 500 MG PREMIX 100 ML IV SCH ×2 (08:30→16:06)
[2020-11-14] MEDS: PANTOPRAZOLE SODIUM 40 MG/VIAL IV SCH (08:30)
[2020-11-14] MEDS: DEXT 5%/0.9% NACL 1,000 ML IV SCH (12:07)
[2020-11-14 14:56] LABS: NUCLEATED RED BLOOD CELLS 3 /100 WBC; PLATELET ESTIMATE SLIGHTLY DECREASED
[2020-11-15] VITALS (67 sets, daily range): BP systolic 29–154; BP diastolic 15–86
[2020-11-15] MEDS: VASOPRESSIN 20 UNIT in SODIUM CHLORIDE 0.9% 99 ML IV PRN ×2 (00:33→09:23)
[2020-11-15] MEDS: METRONIDAZOLE 500 MG PREMIX 100 ML IV SCH ×2 (00:34→09:26)
[2020-11-15] MEDS: METOCLOPRAMIDE HCL 10MG/2ML VIAL IV SCH ×2 (00:38→06:13)
[2020-11-15] MEDS: ACETYLCYSTEINE 100MG/ML 10% VIAL 4ML INH SCH ×3 (01:04→15:58)
[2020-11-15] MEDS: IPRATROPIUM BROMIDE (0.02%) 0.5MG/2.5ML NEB HHN SCH ×5 (01:04→15:58)
[2020-11-15] MEDS: PHENYLEPHRINE 100 MG in DEXT 5% WATER 240 ML IV PRN ×2 (04:04→11:42)
[2020-11-15] MEDS: MIDODRINE HCL 5MG TABLET GT SCH (06:13)
[2020-11-15] MEDS: MEROPENEM 1,000 MG in SODIUM CHLORIDE 0.9% 100 ML IV SCH (06:13)
[2020-11-15] MEDS: NOREPINEPHRINE 8 MG in DEXTROSE 5% WATER 250 ML IV PRN (09:25)
[2020-11-15 09:32] LABS: CHLORIDE 111 mEq/L (98-107); HEMATOCRIT. 25.1 % (36.0-48.0); MEAN CORPUSCULAR HEMOGLOBIN 26.7 pg (28.0-32.0); MEAN CORPUSCULAR VOLUME 83.4 fL (81.0-99.0); MEAN PLATELET VOLUME 10.4 fl (7.4-10.4); PLATELET 85 x1000/uL (130-400); RED CELL DISTRIBUTION WIDTH 20.9 % (11.6-14.6)
[2020-11-15] MEDS: DEXT 5%/0.9% NACL 1,000 ML IV SCH (10:03)
[2020-11-15] MEDS: PANTOPRAZOLE SODIUM 40 MG/VIAL IV SCH (10:03)
[2020-11-15] MEDS ORDERED: MORPHINE SULFATE 250 MG in DEXT 5% WATER 240 ML IV PRN (12:45)
[2020-11-15 13:04] LABS: PLATELET ESTIMATE DECREASED
[2020-11-15] MEDS ORDERED: NOREPINEPHRINE 32 MG in DEXT 5% WATER 218 ML IV PRN (14:00)
== END 2020-11-15 21:00 | DRG 870 ==
LOC: ER 12:34 → EDBEDREQSVC 15:14 → EDBEDREQTM 15:14 → EDBEDREQ 15:14 → ENRESERV 19:39 → MICUNO 21:04 → CVICU 11-13 11:57
PROVIDERS: ADMIT Internal Medicine; ATTEND Internal Medicine
PROC: 5A1955Z Respiratory Ventilation, Greater than 96 Consecutive Hours (ICD-10-PCS; principal; 2020-11-01)
PROC: 0BH17EZ Insertion of Endotracheal Airway into Trachea, Via Natural or Artificial Opening (ICD-10-PCS; 2020-11-01)
DX: A41.9 Sepsis, unspecified organism (principal); J96.01 Acute respiratory failure with hypoxia; J18.9 Pneumonia, unspecified organism; L89.154 Pressure ulcer of sacral region, stage 4; L89.893 Pressure ulcer of other site, stage 3; L89.213 Pressure ulcer of right hip, stage 3; E43 Unspecified severe protein-calorie malnutrition; R65.21 Severe sepsis with septic shock; G93.41 Metabolic encephalopathy; N17.9 Acute kidney failure, unspecified; J44.0 Chronic obstructive pulmonary disease with (acute) lower respiratory infection; E87.0 Hyperosmolality and hypernatremia; N39.0 Urinary tract infection, site not specified; I69.354 Hemiplegia and hemiparesis following cerebral infarction affecting left non-dominant side; R47.01 Aphasia; M86.9 Osteomyelitis, unspecified; K94.23 Gastrostomy malfunction; F03.90 Unspecified dementia, unspecified severity, without behavioral disturbance, psychotic disturbance, mood disturbance, and anxiety; I10 Essential (primary) hypertension; I48.91 Unspecified atrial fibrillation; D64.9 Anemia, unspecified; K21.9 Gastro-esophageal reflux disease without esophagitis; Y82.8 Other medical devices associated with adverse incidents; R13.10 Dysphagia, unspecified; E87.6 Hypokalemia; E11.69 Type 2 diabetes mellitus with other specified complication; E87.70 Fluid overload, unspecified; I27.20 Pulmonary hypertension, unspecified; S81.819A Laceration without foreign body, unspecified lower leg, initial encounter; X58.XXXA Exposure to other specified factors, initial encounter; Z51.5 Encounter for palliative care; Z66 Do not resuscitate; Z74.01 Bed confinement status; Z79.1 Long term (current) use of non-steroidal anti-inflammatories (NSAID); Z79.899 Other long term (current) drug therapy; Z79.891 Long term (current) use of opiate analgesic; Z68.29 Body mass index [BMI] 29.0-29.9, adult; Z87.891 Personal history of nicotine dependence; Y92.89 Other specified places as the place of occurrence of the external cause; Y93.89 Activity, other specified; Y99.8 Other external cause status; Z86.19 Personal history of other infectious and parasitic diseases
CPT/HCPCS: 36415; 36600; 71045; 74018; 80048; 80053; 80202; 81003; 82040; 82375; 82805; 83605; 83735; 83880; 84100; 84134; 84145; 84443; 84484; 85025; 85379; 87070; 87106; 87493; 93005; 93970; 94002; 94003; 94640; 94667; 97162; 97164; 99291; C9113; J1650; J1940; J2060; J2185; J2248; J2250; J2270; J2370; J2543; J2765; J3010; J3370; J3475; J3480; J3490; J7030; J7042; J7050; J7060; J7608